=== PATIENT | female | born 1935 | race Caucasian/White ===

== ENCOUNTER 2017-02-05 04:40 | Inpatient (IN) ==
[2017-02-05] MEDS ORDERED: 0.9 % Sodium Chloride 1,000 ML IVC ONE (04:42)
[2017-02-05 05:19] LABS: Bilirubin,Urine Negative (Negative); Blood,Urine Negative (Negative); Clarity,Urine Cloudy (Clear); Color,Urine Yellow (Yellow); Glucose,Urine (UA) Normal (Normal); Ketones,Urine Negative (Negative); Leukocyte Esterase,Urine Negative (Negative); Nitrite,Urine Negative (Negative); Protein,Urine 30 mg/dL (Neg-Trace); Specific Gravity,Urine 1.019 (1.010-1.025); Urobilinogen,Urine Normal (Normal)
[2017-02-05 05:21] LABS: Hyaline Casts,Urine None Seen per lpf (None-Few); Squamous Epithelial Cell,Urine Many per lpf (None-Few); WBC,Urine 0-3 per hpf (0-3)
[2017-02-05 05:30] LABS: Amorphous Sediment,Urine Few (Few); Bacteria,Urine Many per hpf (None-Few)
[2017-02-05] MEDS ORDERED: *HR* Morphine 2 MG/ML SYRINGE IVP ONE (06:06)
[2017-02-05] MEDS ORDERED: Ondansetron 4 MG/2 ML VIAL IVP ONE (06:06)
--- NOTE | 2017-02-05 06:09 | Emergency Department Note ---
Disposition Clinical Impression: Delirium due to general medical condition Urinary tract infection Qualifiers: Urinary tract infection type: site unspecified Hematuria presence: without hematuria Qualified Code(s): N39.0 - Urinary tract infection, site not specified Disposition: Still a Patient Condition: Fair Referrals: Leonel Ulloa MD [Primary Care Provider] - Forms: ED Satisfaction Letter Time of Disposition: 07:17 General Adult HPI - General Chief complaint: ED Altered Mental Status Stated complaint: AMS Time Seen by Provider: 02/05/17 04:40 Source: EMS Mode of arrival: EMS Limitations: no limitations Nursing Notes Reviewed: Yes Vital Signs Reviewed: Yes - History of Present Illness HPI Narrative: Patient presents emergency room from home for evaluation of confusion and persistent abdominal pain and possible fever. She has a history of urinary tract infections. Family was not here on arrival by EMS. EMS denied any other issues in transport except for the possible fever. No signs of trauma or injury. Onset (ago): day(s) Location: abdomen Radiation: non-radiation Pain Severity: mild Pain Scale: 0 Quality: aching, sharp Consistency: constant Improves with: nothing Associated symptoms: Reports: confusion, fever/chills, loss of appetite. Denies : malaise, nausea/vomiting, shortness of breath Treatments Prior to Arrival: none - Related Data Home Medications Medication Instructions Recorded Confirmed Aspirin [Adult Low Dose Aspirin EC] 81 mg PO DAILY 08/23/15 08/23/15 Biotin 5 mg PO DAILY 08/23/15 08/23/15 BuPROPion SR (12 HR) [Wellbutrin 100 mg PO DAILY 08/23/15 08/23/15 SR] Cholecalciferol (Vitamin D3) 5,000 unit PO DAILY 08/23/15 08/23/15 [Vitamin D3] Glimepiride [Amaryl] 4 mg PO DAILY 08/23/15 08/23/15 Insulin Glargine,Hum.rec.anlog 30 unit SQ HS 08/23/15 08/23/15 [Lantus Solostar] Losartan Potassium [Cozaar] 100 mg PO DAILY 08/23/15 08/23/15 Metoprolol [Lopressor] 50 mg PO BID 08/23/15 08/23/15 Promethazine [Phenergan] 12.5 mg PO Q6HR 08/23/15 08/23/15 Zolpidem [Ambien] 5 mg PO HS 08/23/15 08/23/15 amLODIPine [Norvasc] 10 mg PO DAILY 08/23/15 08/23/15 HYDROcodone/Acet 7.5/325 mg [[place] 1 tab PO Q4H PRN 02/05/17 02/05/17 7.5-325 mg] Previous Rx's Medication Instructions Recorded Meclizine HCl [Bonine] 25 mg PO TID PRN #10 tab.chew 10/14/16 Allergies Allergy/AdvReac Type Severity Reaction Status Date / Time Penicillins Allergy See Verified 02/05/17 05:56 Comments pregabalin [From Lyrica] Allergy See Verified 02/05/17 05:56 Comments All systems ED: reviewed and negative except as stated. Review of Systems: As Per HPI Constitutional: Denies: fever, chills, weakness Cardiovascular: Denies: chest pain, palpitations, dyspnea on exertion, orthopnea , edema, syncope Respiratory: Denies: cough, dyspnea, wheezes, hemoptysis, sputum production Gastrointestinal: Reports: abdominal pain. Denies: nausea, vomiting, diarrhea, constipation Genitourinary: Denies: urgency, dysuria, frequency, hematuria Musculoskeletal: Denies: back pain, neck pain Integumentary: Denies: rash, abrasion Neurological: Denies: headache, weakness, numbness Endocrine: Denies: fatigue Past Medical History - Past Medical History Attestation: Yes The following information was validated with the patient. Source: patient Medical history: Reports: arthritis, diabetes, hypertension, peripheral artery disease, renal disease, other Surgical history: Reports: appendectomy, cataract, colectomy, hysterectomy, other Psychiatric history: Reports: depression [employer]GAGE [employer]OR history: Reports: no MORTGAGE COL[employer]OR history - Social History Smoking Status: Former smoker Smokeless Tobacco Status: No Alcohol use: Reports: none Drug use: Reports: none Physical Exam - General Limitations: no limitations General appearance: alert, in no apparent distress - Head Head exam: atraumatic, normocephalic, normal inspection - Eye Eye exam: Present: normal appearance, PERRL, EOMI. Absent: periorbital swelling , periorbital tenderness - ENT ENT exam: normal exam, normal oropharynx, mucous membranes moist - Neck Neck exam: Present: normal inspection, full ROM, trachea midline. Absent: tenderness, meningismus, lymphadenopathy - Chest Chest inspection: Present: normal inspection, symmetric chest wall rise. Absent : tenderness - Respiratory Respiratory exam: Present: normal lung sounds bilaterally. Absent: respiratory distress, wheezes, stridor, accessory muscle use - Cardiovascular Cardiovascular exam: Present: regular rate, normal rhythm, normal heart sounds - Abdominal Exam Abdominal exam: Present: soft, tenderness, normal bowel sounds. Absent: Non- Tender, distention, guarding, rebound, rigidity, diminished bowel sounds, Diaz 's sign, Rovsing's sign, tenderness at McBurney's Point - Extremities Exam Extremities exam: Present: normal inspection, full ROM, normal capillary refill. Absent: tenderness - Neurological Exam Neurological exam: Present: alert, oriented X3, CN II-XII intact. Absent: motor sensory deficit - Psychiatric Psychiatric exam: Present: normal affect - Skin Skin exam: Present: warm, dry, intact, normal color Course Course Narrative: Patient seen and examined the time of arrival by EMS. See history of present illness. 81-year-old female presents from home [facility] with complaint of abdominal pain over the last 24 hours. During transport patient had an Accu- Chek of 302 and a temperature of 100.1. Patient does have a history of urinary tract infections and does wear adult diapers. On presentation here to the emergency room patient is describing some discomfort and pain. Vital signs on presentation show stable heart rate temperature is reviewed and otherwise normal. Patient is mentating appropriately answering questions and does not appear to have any acute focal deficits at this time. She does appear to be in some moderate distress earlier on in the bed. When asked questions she says that her abdomen hurts. She is unable to isolate her point directly to a specific area where there are pain like symptoms. Lungs are clear heart is regular abdomen is soft diffuse tenderness noted on exam right lower quadrant worse than the left. No pulsatile lesions noted no signs of hernia and no other visible signs of trauma or injury at this point. Patient was on 4 extremities falls commands appropriately. Pulses are intact no signs of pitting edema. Patient denies chest pain shortness of breath headache vision changes nausea vomiting or diarrhea. There is concern for possible septic etiology causing the intermittent confusion. Urinalysis chest x-ray CT of the head CT the abdomen ordered this point. Labs including CBC chemistry liver function testing ammonia magnesium. First dose of IV antibiotics given for possible urinary tract infection considering her history. Patient is concerning for other etiology including intra-abdominal pathology consistent with ischemic bowel urinary tract infection pyelonephritis as well as pneumonia. Patient will have detailed evaluation including EKG and troponin collected at this time. Disposition pending workup and treatment course. Family is at the bedside and said that she has never acted like this in the past. Her. No recent trauma or injuries no recent medication changes at this time. Disposition will most likely be admission to the hospital pending evaluation completion - Reevaluation(s) Reevaluation #1: pt is concerning for intraabdominal pathology with elevated wbc, lactic acid. Kidney function is at baseline. CT of the head and chest x-ray otherwise unremarkable. Rocephin Levaquin and Flagyl been given this time. Secondary fluids are ordered for elevated lactic acid. Heart rate is been stable to the course of care. Pathology appears to be isolated to the abdomen at this time. Unknown specific etiology at this point. Patient will require admission for definitive evaluation and management. Her mentation is better at this point after pain medication has been provided. Patient was signed out to the daytime physician Dr. william. Detailed review the presentation symptoms medical intervention as well as history were discussed. No other acute medical intervention required at this time. We will continue to monitor. Disposition will be admission to hospital once evaluation is completed. Time: 07:16 Vital Signs Temperature 98.6 F 02/05/17 04:41 Pulse Rate 91 02/05/17 04:41 Respiratory Rate 20 02/05/17 04:41 Blood Pressure 106/67 02/05/17 04:41 O2 Sat by Pulse Oximetry 95 02/05/17 04:41 Temperature 98.6 F 02/05/17 04:41 Pulse Rate 77 02/05/17 06:51 Respiratory Rate 20 02/05/17 06:51 Blood Pressure 106/67 02/05/17 04:41 O2 Sat by Pulse Oximetry 97 02/05/17 06:51 Oxygen Delivery Oxygen Delivery Nasal Cannula Medical Decision Making - MDM Narrative Medical decision making narrative: Confusion, abdominal pain, elevated lactic acid, leukocytosis - Medical Records Medical records reviewed: Yes I reviewed the patient's medical records. - Lab Data Lab results reviewed: Yes I reviewed the patient's lab results. Result diagrams: 02/05/17 06:05 02/05/17 06:05 Lab Results 02/05/17 02/05/1702/05/17 Range/Units 05:05 06:05 06:05 WBC 27.9 H (4.3-11.1) K/mcL RBC 3.69 L (3.82-4.97) M/mcL Hgb 11.4 L (11.5-15.4) g/dL Hct 35.4 (35.3-44.9) % MCV 95.9 (83.0-100.0) fL MCH 30.9 (28.0-33.3) pg MCHC 32.2 (31.6-35.5) g/dL RDW 12.8 (11.5-14.5) % Plt Count 186 (140-400) K/mcL MPV 10.2 (9.4-12.4) fL Immature Gran % 1.6 (0-4) % Seg Neutrophils % 89.9 % Lymphocytes % 2.0 % Monocytes % 6.2 % Eosinophils % 0.0 % Basophils % 0.3 % Neutrophils # 25.1 H (1.6-8.9) K/mcL Lymphocytes # 0.6 (0.6-4.6) K/mcL Monocytes # 1.7 H (0.0-1.3) K/mcL Eosinophils # 0.0 (0.0-0.6) K/mcL Basophils # 0.1 (0.0-0.2) K/mcL Hyposegmented Neuts Present A (Not Present) Reactive Lymphocytes Present A (Not Present) Toxic Granulation Present A (Not Present) Toxic Vacuolation Present A (Not Present) Platelet Estimate Normal (Normal) PT 12.3 H (9.4-12.1) Seconds INR 1.1 APTT 27.4 (26.0-36.0) Seconds Sodium (136-145) mEq/L Potassium (3.5-4.5) mEq/L Chloride (98-109) mEq/L Carbon Dioxide (19-29) mEq/L BUN (7-20) mg/dL Creatinine (0.57-1.11) mg/dL Est GFR ( Amer) (> 60) Est GFR (Non-Af Amer) (> 60) BUN/Creatinine Ratio (6-26) Glucose (70-99) mg/dL Calculated Osmolality (280-300) Lactic Acid (0.5-2.2) mmol/L Calcium (8.6-10.8) mg/dL Phosphorus (2.3-4.7) mg/dL Magnesium (1.6-2.6) mg/dL Total Bilirubin (0.2-1.2) mg/dL Direct Bilirubin (0.0-0.5) mg/dL Indirect Bilirubin (0.0-1.2) mg/dL AST (5-34) Units/L ALT (0-55) Units/L Alkaline Phosphatase (38-126) Units/L Troponin I (0-0.03) ng/mL B-Natriuretic Peptide (0-100) pg/mL Serum Total Protein (6.0-8.3) g/dL Albumin (3.5-5.0) g/dL Globulin (2.4-3.5) g/dL Albumin/Globulin Ratio (1.1-2.2) Random Cortisol mcg/dl Urine Color Yellow (Yellow) Urine Clarity Cloudy A (Clear) Urine pH 5.0 (5.0-8.0) pH Units Ur Specific [place] 1.019 (1.010-1.025) Urine Protein 30 H (Neg-Trace) mg/dL Urine Glucose (UA) Normal (Normal) mg/dL Urine Ketones Negative (Negative) mg/dL Urine Blood Negative (Negative) Urine Nitrite Negative (Negative) Urine Bilirubin Negative (Negative) Urine Urobilinogen Normal (Normal) mg/dL Ur Leukocyte Esterase Negative (Negative) Urine Microscopic RBC 3-5 H (0-3) per hpf Urine Microscopic WBC 0-3 (0-3) per hpf Ur Squamous Epith Cells Many H (None-Few) per lpf Amorphous Sediment Few (Few) Urine Bacteria Many H (None-Few) per hpf Hyaline Casts None Seen (None-Few) per lpf Ur Culture Indicated? NO (NO) 02/05/17 02/05/17 02/05/17 Range/Units 06:05 06:05 06:05 WBC (4.3-11.1) K/mcL RBC (3.82-4.97) M/mcL Hgb (11.5-15.4) g/dL Hct (35.3-44.9) % MCV (83.0-100.0) fL MCH (28.0-33.3) pg MCHC (31.6-35.5) g/dL RDW (11.5-14.5) % Plt Count (140-400) K/mcL MPV (9.4-12.4) fL Immature Gran % (0-4) % Seg Neutrophils % % Lymphocytes % % Monocytes % % Eosinophils % % Basophils % % Neutrophils # (1.6-8.9) K/mcL Lymphocytes # (0.6-4.6) K/mcL Monocytes # (0.0-1.3) K/mcL Eosinophils # (0.0-0.6) K/mcL Basophils # (0.0-0.2) K/mcL Hyposegmented Neuts (Not Present) Reactive Lymphocytes (Not Present) Toxic Granulation (Not Present) Toxic Vacuolation (Not Present) Platelet Estimate (Normal) PT (9.4-12.1) Seconds INR APTT (26.0-36.0) Seconds Sodium 136 (136-145) mEq/L Potassium 4.1 (3.5-4.5) mEq/L Chloride 108 (98-109) mEq/L Carbon Dioxide 16 L (19-29) mEq/L BUN 35 H (7-20) mg/dL Creatinine 1.83 H (0.57-1.11) mg/dL Est GFR ( Amer) 32 L (> 60) Est GFR (Non-Af Amer) 26 L (> 60) BUN/Creatinine Ratio 19 (6-26) Glucose 227 H (70-99) mg/dL Calculated Osmolality 297 (280-300) Lactic Acid 2.9 H (0.5-2.2) mmol/L Calcium 9.2 (8.6-10.8) mg/dL Phosphorus 1.5 L (2.3-4.7) mg/dL Magnesium 1.3 L (1.6-2.6) mg/dL Total Bilirubin 1.0 (0.2-1.2) mg/dL Direct Bilirubin 0.5 (0.0-0.5) mg/dL Indirect Bilirubin 0.5 (0.0-1.2) mg/dL AST 33 (5-34) Units/L ALT 17 (0-55) Units/L Alkaline Phosphatase 57 (38-126) Units/L Troponin I 0.58 H* (0-0.03) ng/mL B-Natriuretic Peptide (0-100) pg/mL Serum Total Protein 7.0 (6.0-8.3) g/dL Albumin 3.4 L (3.5-5.0) g/dL Globulin 3.6 H (2.4-3.5) g/dL Albumin/Globulin Ratio 0.9 L (1.1-2.2) Random Cortisol mcg/dl Urine Color (Yellow) Urine Clarity (Clear) Urine pH (5.0-8.0) pH Units Ur Specific Melvin (1.010-1.025) Urine Protein (Neg-Trace) mg/dL Urine Glucose (UA) (Normal) mg/dL Urine Ketones (Negative) mg/dL Urine Blood (Negative) Urine Nitrite (Negative) Urine Bilirubin (Negative) Urine Urobilinogen (Normal) mg/dL Ur Leukocyte Esterase (Negative) Urine Microscopic RBC (0-3) per hpf Urine Microscopic WBC (0-3) per hpf Ur Squamous Epith Cells (None-Few) per lpf Amorphous Sediment (Few) Urine Bacteria (None-Few) per hpf Hyaline Casts (None-Few) per lpf Ur Culture Indicated? (NO) 02/05/17 Range/Units 06:05 WBC (4.3-11.1) K/mcL RBC (3.82-4.97) M/mcL Hgb (11.5-15.4) g/dL Hct (35.3-44.9) % MCV (83.0-100.0) fL MCH (28.0-33.3) pg MCHC (31.6-35.5) g/dL RDW (11.5-14.5) % Plt Count (140-400) K/mcL MPV (9.4-12.4) fL Immature Gran % (0-4) % Seg Neutrophils % % Lymphocytes % % Monocytes % % Eosinophils % % Basophils % % Neutrophils # (1.6-8.9) K/mcL Lymphocytes # (0.6-4.6) K/mcL Monocytes # (0.0-1.3) K/mcL Eosinophils # (0.0-0.6) K/mcL Basophils # (0.0-0.2) K/mcL Hyposegmented Neuts (Not Present) Reactive Lymphocytes (Not Present) Toxic Granulation (Not Present) Toxic Vacuolation (Not Present) Platelet Estimate (Normal) PT (9.4-12.1) Seconds INR APTT (26.0-36.0) Seconds Sodium (136-145) mEq/L Potassium (3.5-4.5) mEq/L Chloride (98-109) mEq/L Carbon Dioxide (19-29) mEq/L BUN (7-20) mg/dL Creatinine (0.57-1.11) mg/dL Est GFR ( Amer) (> 60) Est GFR (Non-Af Amer) (> 60) BUN/Creatinine Ratio (6-26) Glucose (70-99) mg/dL Calculated Osmolality (280-300) Lactic Acid (0.5-2.2) mmol/L Calcium (8.6-10.8) mg/dL Phosphorus (2.3-4.7) mg/dL Magnesium (1.6-2.6) mg/dL Total Bilirubin (0.2-1.2) mg/dL Direct Bilirubin (0.0-0.5) mg/dL Indirect Bilirubin (0.0-1.2) mg/dL AST (5-34) Units/L ALT (0-55) Units/L Alkaline Phosphatase (38-126) Units/L Troponin I (0-0.03) ng/mL B-Natriuretic Peptide 306 H (0-100) pg/mL Serum Total Protein (6.0-8.3) g/dL Albumin (3.5-5.0) g/dL Globulin (2.4-3.5) g/dL Albumin/Globulin Ratio (1.1-2.2) Random Cortisol mcg/dl Urine Color (Yellow) Urine Clarity (Clear) Urine pH (5.0-8.0) pH Units Ur Specific [place] (1.010-1.025) Urine Protein (Neg-Trace) mg/dL Urine Glucose (UA) (Normal) mg/dL Urine Ketones (Negative) mg/dL Urine Blood (Negative) Urine Nitrite (Negative) Urine Bilirubin (Negative) Urine Urobilinogen (Normal) mg/dL Ur Leukocyte Esterase (Negative) Urine Microscopic RBC (0-3) per hpf Urine Microscopic WBC (0-3) per hpf Ur Squamous Epith Cells (None-Few) per lpf Amorphous Sediment (Few) Urine Bacteria (None-Few) per hpf Hyaline Casts (None-Few) per lpf Ur Culture Indicated? (NO) - Radiology Data Radiology results reviewed: Yes I reviewed the patient's radiology results. Chest x-ray and CT of the head are negative - EKG Data EKG #1 EKG attestation: Yes I reviewed and interpreted this EKG. EKG shows normal: sinus rhythm, axis, QRS complexes, ST-T waves Rhythm: NSR [place]/QRS: left axis deviation, LBBB Heart block present: 1st Degree When compared to previous EKG there are: no significant changes Interpretation: no acute changes, unchanged when compared to prior tracing (date ) (10/14/16) Critical Care Time Critical Care Time: Yes Total Critical Care Time: 35 Attestation: Critical care performed: Time is exclusive of separately billable procedures. Time includes: direct patient care, patient reassessment, coordination of patient care, interpretation of data (laboratory data, radiology data, and respiratory data), review of patient's medical records, medical consultation and documentation of patient care. Procedures included in critical care time: Procedures excluded from critical care time:
[2017-02-05 06:18] LABS: Basophils # 0.1 K/mcL (0.0-0.2); Basophils % 0.3 %; Hematocrit 35.4 % (35.3-44.9); Hemoglobin 11.4 g/dL (11.5-15.4); Immature Granulocytes % 1.6 % (0-4); Lymphocytes # 0.6 K/mcL (0.6-4.6); Mean Corpuscular HGB Conc 32.2 g/dL (31.6-35.5); Mean Corpuscular Hemoglobin 30.9 pg (28.0-33.3); Mean Corpuscular Volume 95.9 fL (83.0-100.0); Mean Platelet Volume 10.2 fL (9.4-12.4); Monocytes # 1.7 K/mcL (0.0-1.3); Monocytes % 6.2 %; Neutrophils # 25.1 K/mcL (1.6-8.9); Platelet Count 186 K/mcL (140-400); Red Blood Count 3.69 M/mcL (3.82-4.97); Red Cell Distribution Width 12.8 % (11.5-14.5); Segmented Neutrophils % 89.9 %
[2017-02-05 06:27] LABS: INR 1.1; Prothrombin Time 12.3 Seconds (9.4-12.1)
[2017-02-05 06:29] LABS: Activated Partial Thrombo Time 27.4 Seconds (26.0-36.0)
[2017-02-05 06:34] LABS: Albumin 3.4 g/dL (3.5-5.0); Albumin/Globulin Ratio 0.9 (1.1-2.2); Bilirubin,Direct 0.5 mg/dL (0.0-0.5); Bilirubin,Indirect 0.5 mg/dL (0.0-1.2); Calcium 9.2 mg/dL (8.6-10.8); Globulin 3.6 g/dL (2.4-3.5); Magnesium 1.3 mg/dL (1.6-2.6); Phosphorous 1.5 mg/dL (2.3-4.7); Platelet Estimate Normal (Normal); Potassium 4.1 mEq/L (3.5-4.5); Reactive Lymphocytes Present (Not Present); Toxic Granulation Present (Not Present); Toxic Vacuolation Present (Not Present)
[2017-02-05] MEDS ORDERED: MetroNIDAZOLE 500 MG/100 ML 500 MG/100 ML BAG IVPB ONE (06:44)
[2017-02-05] MEDS ORDERED: Levofloxacin 750 MG/150 ML 750 MG/150 ML BAG IVPB ONE (06:44)
[2017-02-05] MEDS: Vancomycin 1,250 MG in D5% in Water 250 ML IVPB ONE ×2 (07:20→07:53)
--- NOTE | 2017-02-05 07:33 | Emergency Department Note ---
Disposition Clinical Impression: Delirium due to general medical condition Urinary tract infection Qualifiers: Urinary tract infection type: site unspecified Hematuria presence: without hematuria Qualified Code(s): N39.0 - Urinary tract infection, site not specified Disposition: Admitted As Inpatient Condition: Fair Referrals: Leonel Ulloa MD [Primary Care Provider] - General Adult HPI - General Chief complaint: ED Altered Mental Status Stated complaint: AMS Time Seen by Provider: 02/05/17 04:40 Source: EMS Mode of arrival: EMS Limitations: no limitations Nursing Notes Reviewed: Yes Vital Signs Reviewed: Yes - History of Present Illness Location: abdomen Pain Scale: 0 Quality: aching, sharp Improves with: nothing Associated symptoms: Reports: confusion, fever/chills, loss of appetite. Denies : malaise, nausea/vomiting, shortness of breath Treatments Prior to Arrival: none - Related Data Home Medications Medication Instructions Recorded Confirmed Aspirin [Adult Low Dose Aspirin EC] 81 mg PO DAILY 08/23/15 02/05/17 Biotin 5 mg PO DAILY 08/23/15 02/05/17 BuPROPion SR (12 HR) [Wellbutrin 100 mg PO DAILY 08/23/15 02/05/17 SR] Cholecalciferol (Vitamin D3) 5,000 unit PO DAILY 08/23/15 02/05/17 [Vitamin D3] Glimepiride [Amaryl] 4 mg PO DAILY 08/23/15 02/05/17 Insulin Glargine,Hum.rec.anlog 26 unit SQ HS 08/23/15 02/05/17 [Lantus Solostar] Losartan Potassium [Cozaar] 100 mg PO DAILY 08/23/15 02/05/17 Metoprolol [Lopressor] 50 mg PO BID 08/23/15 02/05/17 Promethazine [Phenergan] 12.5 mg PO Q6HR 08/23/15 02/05/17 Zolpidem [Ambien] 5 mg PO HS 08/23/15 02/05/17 amLODIPine [Norvasc] 10 mg PO DAILY 08/23/15 02/05/17 HYDROcodone/Acet 7.5/325 mg [[place] 1 tab PO Q4H PRN 02/05/17 02/05/17 7.5-325 mg] Previous Rx's Medication Instructions Recorded Meclizine HCl [Bonine] 25 mg PO TID PRN #10 tab.chew 10/14/16 Allergies Allergy/AdvReac Type Severity Reaction Status Date / Time Penicillins Allergy See Verified 02/05/17 05:56 Comments pregabalin [From Lyrica] Allergy See Verified 02/05/17 05:56 Comments Constitutional: Denies: fever, chills, weakness Cardiovascular: Denies: chest pain, palpitations, dyspnea on exertion, orthopnea , edema, syncope Respiratory: Denies: cough, dyspnea, wheezes, hemoptysis, sputum production Gastrointestinal: Reports: abdominal pain. Denies: nausea, vomiting, diarrhea, constipation Genitourinary: Denies: urgency, dysuria, frequency, hematuria Musculoskeletal: Denies: back pain, neck pain Integumentary: Denies: rash, abrasion Neurological: Denies: headache, weakness, numbness Endocrine: Denies: fatigue Past Medical History - Past Medical History Attestation: Yes The following information was validated with the patient. Medical history: Reports: arthritis, diabetes, hypertension, peripheral artery disease, renal disease, other Surgical history: Reports: appendectomy, cataract, colectomy, hysterectomy, other Psychiatric history: Reports: depression BRICK TOSSER history: Reports: no BRICK TOSSER history - Social History Smoking Status: Former smoker Smokeless Tobacco Status: No Alcohol use: Reports: none Drug use: Reports: none Physical Exam - General Limitations: no limitations General appearance: alert, in no apparent distress - Head Head exam: atraumatic, normocephalic, normal inspection - Eye Eye exam: Present: normal appearance, PERRL, EOMI. Absent: scleral icterus - ENT ENT exam: normal exam, normal oropharynx, mucous membranes moist - Neck Neck exam: Present: normal inspection, full ROM, trachea midline - Chest Chest inspection: Present: normal inspection, symmetric chest wall rise. Absent : tenderness, rash - Respiratory Respiratory exam: Present: normal lung sounds bilaterally. Absent: respiratory distress, accessory muscle use - Cardiovascular Cardiovascular exam: Present: regular rate, normal rhythm, normal heart sounds Course Course Narrative: Patient signed out by water pumper. Dr. Montez. Please see his note for further. Patient is presenting with abdominal pain. Initial workup has been completed. She has been started on broad-spectrum antibiotics. She did present with a mild fever initially and abdominal pain. Does have a chronic history of urinary tract infections. Also has a history of bowel obstruction. On my presentation to the room the patient denies any abdominal pain however on exam she does have our quadrant abdominal pain bilaterally. More so on the right than the left. She has no other complaints at this time. She appears to be in no distress swelling there. Her abdominal CT shows epiploic appendage- itis versus diverticulosis. She has a elevated troponin and increased white blood cell count. Her urinalysis is not overly concerning for urinary tract infection. She has no leuk esterase or nitrites. She does have many bacteria however. The patient on broad-spectrum antibiotic since received a small fluid bolus. She does have some edema to her lower extremities bilaterally. She also has some mild erythema to her left lower extremity. It is not any warmer to the touch than her right lower extremity. We will admit patient to the hospital. - Consultations Consultation #1: Dr Mcmahon accepted Pt in stable condition. I have ensured that the Pt is going to get Vanc and flagyl. Time: 07:40 Vital Signs Temperature 98.6 F 02/05/17 04:41 Pulse Rate 91 02/05/17 04:41 Respiratory Rate 20 02/05/17 04:41 Blood Pressure 106/67 02/05/17 04:41 O2 Sat by Pulse Oximetry 95 02/05/17 04:41 Temperature 99.7 F H 02/05/17 08:54 Pulse Rate 83 02/05/17 08:54 Respiratory Rate 17 02/05/17 08:54 Blood Pressure 133/56 02/05/17 08:54 O2 Sat by Pulse Oximetry 95 02/05/17 08:54 Oxygen Delivery Oxygen Delivery Room Air Medical Decision Making - Lab Data Result diagrams: 02/05/17 06:05 02/05/17 06:05 Lab Results 02/05/17 02/05/17 02/05/17 Range/Units 05:05 06:05 06:05 WBC 27.9 H (4.3-11.1) K/mcL RBC 3.69 L (3.82-4.97) M/mcL Hgb 11.4 L (11.5-15.4) g/dL Hct 35.4 (35.3-44.9) % MCV 95.9 (83.0-100.0) fL MCH 30.9 (28.0-33.3) pg MCHC 32.2 (31.6-35.5) g/dL RDW 12.8 (11.5-14.5) % Plt Count 186 (140-400) K/mcL MPV 10.2 (9.4-12.4) fL Immature Gran % 1.6 (0-4) % Seg Neutrophils % 89.9 % Lymphocytes % 2.0 % Monocytes % 6.2 % Eosinophils % 0.0 % Basophils % 0.3 % Neutrophils # 25.1 H (1.6-8.9) K/mcL Lymphocytes # 0.6 (0.6-4.6) K/mcL Monocytes # 1.7 H (0.0-1.3) K/mcL Eosinophils # 0.0 (0.0-0.6) K/mcL Basophils # 0.1 (0.0-0.2) K/mcL Hyposegmented Neuts Present A (Not Present) Reactive Lymphocytes Present A (Not Present) Toxic Granulation Present A (Not Present) Toxic Vacuolation Present A (Not Present) Platelet Estimate Normal (Normal) PT 12.3 H (9.4-12.1) Seconds INR 1.1 APTT 27.4 (26.0-36.0) Seconds Sodium (136-145) mEq/L Potassium (3.5-4.5) mEq/L Chloride (98-109) mEq/L Carbon Dioxide (19-29) mEq/L BUN (7-20) mg/dL Creatinine (0.57-1.11) mg/dL Est GFR ( Amer) (> 60) Est GFR (Non-Af Amer) (> 60) BUN/Creatinine Ratio (6-26) Glucose (70-99) mg/dL Calculated Osmolality (280-300) Lactic Acid (0.5-2.2) mmol/L Calcium (8.6-10.8) mg/dL Phosphorus (2.3-4.7) mg/dL Magnesium (1.6-2.6) mg/dL Total Bilirubin (0.2-1.2) mg/dL Direct Bilirubin (0.0-0.5) mg/dL Indirect Bilirubin (0.0-1.2) mg/dL AST (5-34) Units/L ALT (0-55) Units/L Alkaline Phosphatase (38-126) Units/L Ammonia (18-72) mcmol/L Troponin I (0-0.03) ng/mL B-Natriuretic Peptide (0-100) pg/mL Serum Total Protein (6.0-8.3) g/dL Albumin (3.5-5.0) g/dL Globulin (2.4-3.5) g/dL Albumin/Globulin Ratio (1.1-2.2) Random Cortisol mcg/dl Urine Color Yellow (Yellow) Urine Clarity Cloudy A (Clear) Urine pH 5.0 (5.0-8.0) pH Units Ur Specific Reserve 1.019 (1.010-1.025) Urine Protein 30 H (Neg-Trace) mg/dL Urine Glucose (UA) Normal (Normal) mg/dL Urine Ketones Negative (Negative) mg/dL Urine Blood Negative (Negative) Urine Nitrite Negative (Negative) Urine Bilirubin Negative (Negative) Urine Urobilinogen Normal (Normal) mg/dL Ur Leukocyte Esterase Negative (Negative) Urine Microscopic RBC 3-5 H (0-3) per hpf Urine Microscopic WBC 0-3 (0-3) per hpf Ur Squamous Epith Cells Many H (None-Few) per lpf Amorphous Sediment Few (Few) Urine Bacteria Many H (None-Few) per hpf Hyaline Casts None Seen (None-Few) per lpf Ur Culture Indicated? NO (NO) 02/05/17 02/05/17 02/05/17 Range/Units 06:05 06:05 06:05 WBC (4.3-11.1) K/mcL RBC (3.82-4.97) M/mcL Hgb (11.5-15.4) g/dL Hct (35.3-44.9) % MCV (83.0-100.0) fL MCH (28.0-33.3) pg MCHC (31.6-35.5) g/dL RDW (11.5-14.5) % Plt Count (140-400) K/mcL MPV (9.4-12.4) fL Immature Gran % (0-4) % Seg Neutrophils % % Lymphocytes % % Monocytes % % Eosinophils % % Basophils % % Neutrophils # (1.6-8.9) K/mcL Lymphocytes # (0.6-4.6) K/mcL Monocytes # (0.0-1.3) K/mcL Eosinophils # (0.0-0.6) K/mcL Basophils # (0.0-0.2) K/mcL Hyposegmented Neuts (Not Present) Reactive Lymphocytes (Not Present) Toxic Granulation (Not Present) Toxic Vacuolation (Not Present) Platelet Estimate (Normal) PT (9.4-12.1) Seconds INR APTT (26.0-36.0) Seconds Sodium 136 (136-145) mEq/L Potassium 4.1 (3.5-4.5) mEq/L Chloride 108 (98-109) mEq/L Carbon Dioxide 16 L (19-29) mEq/L BUN 35 H (7-20) mg/dL Creatinine 1.83 H (0.57-1.11) mg/dL Est GFR ( Amer) 32 L (> 60) Est GFR (Non-Af Amer) 26 L (> 60) BUN/Creatinine Ratio 19 (6-26) Glucose 227 H (70-99) mg/dL Calculated Osmolality 297 (280-300) Lactic Acid 2.9 H (0.5-2.2) mmol/L Calcium 9.2 (8.6-10.8) mg/dL Phosphorus 1.5 L (2.3-4.7) mg/dL Magnesium 1.3 L (1.6-2.6) mg/dL Total Bilirubin 1.0 (0.2-1.2) mg/dL Direct Bilirubin 0.5 (0.0-0.5) mg/dL Indirect Bilirubin 0.5 (0.0-1.2) mg/dL AST 33 (5-34) Units/L ALT 17 (0-55) Units/L Alkaline Phosphatase 57 (38-126) Units/L Ammonia (18-72) mcmol/L Troponin I 0.58 H* (0-0.03) ng/mL B-Natriuretic Peptide (0-100) pg/mL Serum Total Protein 7.0 (6.0-8.3) g/dL Albumin 3.4 L (3.5-5.0) g/dL Globulin 3.6 H (2.4-3.5) g/dL Albumin/Globulin Ratio 0.9 L (1.1-2.2) Random Cortisol 58.4 mcg/dl Urine Color (Yellow) Urine Clarity (Clear) Urine pH (5.0-8.0) pH Units Ur Specific Reserve (1.010-1.025) Urine Protein (Neg-Trace) mg/dL Urine Glucose (UA) (Normal) mg/dL Urine Ketones (Negative) mg/dL Urine Blood (Negative) Urine Nitrite (Negative) Urine Bilirubin (Negative) Urine Urobilinogen (Normal) mg/dL Ur Leukocyte Esterase (Negative) Urine Microscopic RBC (0-3) per hpf Urine Microscopic WBC (0-3) per hpf Ur Squamous Epith Cells (None-Few) per lpf Amorphous Sediment (Few) Urine Bacteria (None-Few) per hpf Hyaline Casts (None-Few) per lpf Ur Culture Indicated? (NO) 02/05/17 02/05/17 02/05/17 Range/Units 06:05 07:55 07:55 WBC (4.3-11.1) K/mcL RBC (3.82-4.97) M/mcL Hgb (11.5-15.4) g/dL Hct (35.3-44.9) % MCV (83.0-100.0) fL MCH (28.0-33.3) pg MCHC (31.6-35.5) g/dL RDW (11.5-14.5) % Plt Count (140-400) K/mcL MPV (9.4-12.4) fL Immature Gran % (0-4) % Seg Neutrophils % % Lymphocytes % % Monocytes % % Eosinophils % % Basophils % % Neutrophils # (1.6-8.9) K/mcL Lymphocytes # (0.6-4.6) K/mcL Monocytes # (0.0-1.3) K/mcL Eosinophils # (0.0-0.6) K/mcL Basophils # (0.0-0.2) K/mcL Hyposegmented Neuts (Not Present) Reactive Lymphocytes (Not Present) Toxic Granulation (Not Present) Toxic Vacuolation (Not Present) Platelet Estimate (Normal) PT (9.4-12.1) Seconds INR APTT (26.0-36.0) Seconds Sodium (136-145) mEq/L Potassium (3.5-4.5) mEq/L Chloride (98-109) mEq/L Carbon Dioxide (19-29) mEq/L BUN (7-20) mg/dL Creatinine (0.57-1.11) mg/dL Est GFR ( Amer) (> 60) Est GFR (Non-Af Amer) (> 60) BUN/Creatinine Ratio (6-26) Glucose (70-99) mg/dL Calculated Osmolality (280-300) Lactic Acid 2.9 H (0.5-2.2) mmol/L Calcium (8.6-10.8) mg/dL Phosphorus (2.3-4.7) mg/dL Magnesium (1.6-2.6) mg/dL Total Bilirubin (0.2-1.2) mg/dL Direct Bilirubin (0.0-0.5) mg/dL Indirect Bilirubin (0.0-1.2) mg/dL AST (5-34) Units/L ALT (0-55) Units/L Alkaline Phosphatase (38-126) Units/L Ammonia 23 (18-72) mcmol/L Troponin I (0-0.03) ng/mL B-Natriuretic Peptide 306 H (0-100) pg/mL Serum Total Protein (6.0-8.3) g/dL Albumin (3.5-5.0) g/dL Globulin (2.4-3.5) g/dL Albumin/Globulin Ratio (1.1-2.2) Random Cortisol mcg/dl Urine Color (Yellow) Urine Clarity (Clear) Urine pH (5.0-8.0) pH Units Ur Specific Reserve (1.010-1.025) Urine Protein (Neg-Trace) mg/dL Urine Glucose (UA) (Normal) mg/dL Urine Ketones (Negative) mg/dL Urine Blood (Negative) Urine Nitrite (Negative) Urine Bilirubin (Negative) Urine Urobilinogen (Normal) mg/dL Ur Leukocyte Esterase (Negative) Urine Microscopic RBC (0-3) per hpf Urine Microscopic WBC (0-3) per hpf Ur Squamous Epith Cells (None-Few) per lpf Amorphous Sediment (Few) Urine Bacteria (None-Few) per hpf Hyaline Casts (None-Few) per lpf Ur Culture Indicated? (NO)
[2017-02-05] MEDS ORDERED: Magnesium Sulfate 2 GM in D5% in Water 100 ML IVPB ONE (09:33)
[2017-02-05] MEDS ORDERED: Naloxone 0.4 MG/ML INJ IVP PRN (09:43)
[2017-02-05] MEDS ORDERED: Ondansetron 4 MG/2 ML VIAL IVP PRN (09:43)
[2017-02-05] MEDS ORDERED: *HR* Morphine 2 MG/ML SYRINGE IVP PRN (09:43)
[2017-02-05] MEDS ORDERED: 0.9 % Sodium Chloride 1,000 ML IVC SCH (09:45)
[2017-02-05] MEDS ORDERED: Sodium Bicarbonate 150 MEQ in 0.45 % Sodium Chloride 1,000 ML IVC SCH (09:45)
[2017-02-05] MEDS ORDERED: D5% in Water 1,000 ML IVC PRN (09:47)
[2017-02-05] MEDS ORDERED: *HR* Dextrose 50 % in Water (Syg) 50 ML SYRINGE IVP PRN (09:47)
[2017-02-05] MEDS ORDERED: Dextrose Gel 15 GM PO PRN ×2 (09:47)
[2017-02-05] MEDS ORDERED: *HR* HYDROcodone/Acet 7.5/325 mg TABLET PO PRN (09:50)
[2017-02-05] MEDS ORDERED: Acetaminophen 325 MG TABLET PO PRN (09:59)
--- NOTE | 2017-02-05 10:17 | Internal Med History&Physical ---
<Afsaneh Elizondo - Last Filed: 02/05/17 09:54> Date of Encounter: 02/05/17 Time of Encounter: 09:54 Assessment and Plan (1) Severe sepsis Current visit: Yes Status: Acute Patient presents with severe sepsis of unknown etiology WBC: 27.9, troponin elevated to 0.58, lactate elevated at 2.9x2 Bicarb 16; 283 meq deficiency CXR negative EKG unchanged from old: Sinus rhythm with 1st degree AV block, left axis deviation, left bbb CT abdomen revealed Inflammatory stranding adjacent to the proximal sigmoid colon in the left lower quadrant suggesting fatty mass, findings may represent epiploic appendagitis or inflammation of a prominent lymph node with fatty hilum of unclear etiology, acute diverticulitis is considered less likely as no inflamed diverticula are identified; severe diverticulosis, cholelithiasis. IV vancomycin, rocephin, flagyl and levaquin were administered in the ER. The patient was admitted to the Hospitalist service for further evaluation of a source of her severe sepsis. Abd non-distend, soft, very hot, no erythema or eccymosis, bs hypoactive, tender in LLQ, RLQ, suprapubic. No anasarca on exam, no fluid wave appreciated. Afebrile, regular rate, normotensive BC drawn in ED Abx in ED: rocephin, flagyl, levaquin, vanc Plan: -Will give 3 amps bicarb in 0.45% NS bolus -IVF after bolus 0.9%NS at 75/hr -IV cipro and flagyl -Trend lactate Q4hr until <2 -Trend trops Q6hr, elevation most likely secondary to severe sepsis -Clear liquid diet -telemetry -PT/OT -pain control -zofran, phenergan for nausea -GI prohpylaxis: omeprazole -DVT prophylaxis: Hep SQ (2) Increased anion gap metabolic acidosis Current visit: Yes Status: Acute A Patient with multiple episodes of diarrhea, decreased bicarb, mag and phos likely secondary to diarrhea Plan: -3amps bicarb in 0.45%NS -IVF at 75/hr after that -Replete mag and phos -Monitor electrolytes -test for cdiff (3) Diarrhea Current visit: Yes Status: Acute Patient had 2 episodes of diarrhea while in the ED, denies diarrhea yesterday stating she had formed stool. Denies blood in stool, melena, recent abx use. Plan: -cidff pcr -IVF -Continue to monitor electrolytes Qualifiers: Diarrhea type: unspecified type Qualified Code(s): R19.7 - Diarrhea, unspecified (4) Hypomagnesemia Current visit: Yes Status: Acute Mag 1.3 Plan: -Replace with 1gm mag Q4hrx3 doses -Recheck in AM (5) Hypophosphatemia Current visit: Yes Status: Acute Phos 1.5 Plan: -Replace with neutrophos -Recheck in AM (6) CKD (chronic kidney disease) stage 4, GFR 15-29 ml/min Current visit: Yes Status: Acute Scr, GFR at baseline Plan: -Will continue to monitor -Will hold losartan today and hold if SCr worsens to avoid nephrotic injury -Will renally dose and avoid nephrotoxins as able. (7) Diabetes mellitus Current visit: Yes Status: Acute Plan: -levemir 26 units QHS -Medium dose SSI -Accuchecks ACHS Qualifiers: Diabetes mellitus type: type 2 Diabetes mellitus complication status: with neurologic complications Diabetes mellitus complication detail: with polyneuropathy Diabetes mellitus long term care phlebotomist insulin use: unspecified long term care phlebotomist insulin use status Qualified Code(s): E11.42 - Type 2 diabetes mellitus with diabetic polyneuropathy (8) HTN (hypertension) Current visit: Yes Status: Acute BP stable Plan: -Continue to monitor -Will restart home BP meds, hold if SBP<100 -Will hold losartan today and restart tomorrow Qualifiers: Hypertension type: essential hypertension Qualified Code(s): I10 - Essential (primary) hypertension (9) PAD (peripheral artery disease) Current visit: Yes Status: Acute HX of PAD Patient has B/L LE edema, left calf circumference > right, mild erythema left anterior delatorre, increased warmth on left compared to right Plan: -B/l venous doppler to r/o DVT (10) DVT prophylaxis Current visit: Yes Status: Acute Heparin SQ Internal Medicine - H&P: HPI Chief complaint: abdominal pain Admitted From: Emergency Dept Plans for Post Hospital Care: Home History of present illness: Ms. Syed is a 81 year old female with a PMH of IDDM with neuropathy, PAD, CKD stage IV, and HTN who presented to the [facility] ED this morning with abdominal pain. She states that she began experiencing an aching, constant, non-radiating pain in her lower abdomen around 0100. She noted associated SOB, nausea, low back pain, bilateral LE edema and being "wobbly" on her feet. She states that while enroute, EMS took her temperature and it was 100.1. She states that while in the ER, she had 2 episodes of diarrhea that was not dark or bloody. Yesterday she had normal "formed" stool. She denies any recent illness, antibiotic use, sick contacts, travel or new/unusual food in her diet. She denies fever, chills, JUAREZ, dizziness, visual changes, ear pain, sore throat, rhinorrea, neck pain, palpitations, cp, cough, wheezing, vomiting, dysuria, incontinence, buring with urination, constipation, rashes, bruising, sores, numbness/tingling of her extremities. Her family notes that she has a history of recurrent UITs and bowel obstructions, once requiring surgical intervention. She was evaluated in the ER and found to have a leukocytosis of 27.9 with neutrophils 25.1, elevated lactate at 2.9x2 draws and elevated troponin at 0.58. BC were drawn and the UA does not demonstrate a current UTI. CXR was negative for any accute process. CT abdomen revealed Inflammatory stranding adjacent to the proximal sigmoid colon in the left lower quadrant suggesting fatty mass, findings may represent epiploic appendagitis or inflammation of a prominent lymph node with fatty hilum of unclear etiology, acute diverticulitis is considered less likely as no inflamed diverticula are identified; severe diverticulosis, cholelithiasis. IV vancomycin, rocephin, flagyl and levaquin were administered in the ER. The patient was admitted to the Hospitalist service for further evaluation of a source of her severe sepsis. Past Med Surg Social Fam HX - Past Medical History Source: patient, obtained from family Medical history: arthritis, diabetes, hypertension, peripheral artery disease, renal disease, other Psychiatric history: depression - Past Surgical History Surgical History: appendectomy, cataract, colectomy, hysterectomy, other - Social History Smoking Status: Former smoker Smokeless Tobacco Status: No Alcohol use: none Drug use: none Occupational status: retired Current living situation: Home, With Family Activity Level: Uses cane/walker (cane) Recent Out of Country Travel Within the Last 8 Weeks: No Exposure or Possible Exposure to Illness During Travel: No - Family History Father Living Status: Hx Family Cardiac Disorders: Yes Internal Medicine - H&P: Meds Aspirin [Adult Low Dose Aspirin EC] 81 mg PO DAILY 08/23/15 [History] Biotin 5 mg PO DAILY 08/23/15 [History] BuPROPion SR (12 HR) [Wellbutrin SR] 100 mg PO DAILY 08/23/15 [History] Cholecalciferol (Vitamin D3) [Vitamin D3] 5,000 unit PO DAILY 08/23/15 [History] Glimepiride [Amaryl] 4 mg PO DAILY 08/23/15 [History] Insulin Glargine,Hum.rec.anlog [Lantus Solostar] 26 unit SQ HS 08/23/15 [History ] Losartan Potassium [Cozaar] 100 mg PO DAILY 08/23/15 [History] Metoprolol [Lopressor] 50 mg PO BID 08/23/15 [History] Promethazine [Phenergan] 12.5 mg PO Q6HR 08/23/15 [History] Zolpidem [Ambien] 5 mg PO HS 08/23/15 [History] amLODIPine [Norvasc] 10 mg PO DAILY 08/23/15 [History] Meclizine HCl [Bonine] 25 mg PO TID PRN #10 tab.chew 10/14/16 [Rx] HYDROcodone/Acet 7.5/325 mg [[place] 7.5-325 mg] 1 tab PO Q4H PRN 02/05/17 [ History] 3 Allergy/AdvReac Type Severity Reaction Status Date / Time Penicillins Allergy See Verified 02/05/17 05:56 Comments pregabalin [From Lyrica] Allergy See Verified 02/05/17 05:56 Comments All Systems PM: A 10-system review of systems was performed and is negative for pertinent findings except as documented above in the HPI. - Constitutional Vitals: Temp Pulse Resp BP Pulse Ox 99.7 F H 83 17 133/56 95 02/05/17 08:54 02/05/17 08:54 02/05/17 08:54 02/05/17 08:54 02/05/17 08:54 General appearance: Present: cooperative, A&O X 3, pleasant, no acute distress, obese, answers questions appropriately - Head Head exam: Present: atraumatic, normocephalic - Eye Eye exam: Present: EOMI, normal appearance, PERRL, conjuntiva pink, sclera anicteric Pupils: Present: PERRL - Neck Neck exam general surgery: Present: normal inspection, supple, trachea midline. Absent: lymphadenopathy, tenderness, nuchal rigidity, thyromegaly - Respiratory Respiratory exam: Present: CTAB. Absent: accessory muscle use, rales, rhonchi, wheezes - Cardiovascular Cardiovascular exam: Present: RRR, +S1, +S2. Absent: diastolic murmur, gallop, rubs, systolic murmur - GI/Abdominal GI/Abdominal exam: Present: hypoactive bowel sounds, soft, tenderness (RLQ, LLQ , suprapubic), no peritoneal signs. Absent: distended Additional comments: Skin feels hot no fluid wave - Extremities Exam Extremities exam: Present: normal capillary refill, pedal edema, tenderness, warm, radial pulses palpable and symmetrical. Absent: cyanotic Additional comments: bilateral LE pitting edema left calf circumference greater than the right mild erythema anteriorly on the left delatorre healing scabs on b/l shins no open sores noted, no pressure sores - Back Exam Back exam: Present: normal inspection, vertebral tenderness (L1/L2). Absent: CVA tenderness (L), CVA tenderness (R), rash noted - Neurological Exam Neurological exam: Present: alert, CN II-XII intact, oriented X3, no focal deficits, strengths equal and symetr throughout. Absent: motor sensory deficit , pronater drift, facial droop, speech deficit - Expanded Neurological Exam Patient oriented to: Present: person, place, time Speech: Present: fluid speech Cranial Nerves: EOM's intact PM: Normal, nystagmus PM: Normal, tongue deviation PM: Normal Cerebellar function: finger to nose: Normal Sensory exam: lower extremity light touch: Normal, upper extremity light touch: Normal Neuro motor strength exam: LUE: 5, RUE: 5, LLE: 4, RLE: 4 Coma Scale Eye Opening: Spontaneous Coma Scale Motor Response: Obeys Commands Coma Scale Verbal Response: Oriented Coma Scale Total: 15 - Psychiatric Psychiatric exam: Present: normal affect, normal mood - Skin Skin exam: Present: dry, intact, normal color, warm. Absent: diaphoretic, erythema, rash Additional comments: No ulcers noted on back, buttocks or b/l LE/feet no rashes noted mild area of erythema on anterior left delatorre healing scabs b/l shins Internal Med - H&P Results - Labs CBC & Chem 7: 02/05/17 06:05 02/05/17 06:05 <Gloria Mcmahon - Last Filed: 02/05/17 15:46> Date of Encounter: 02/05/17 Internal Medicine - H&P: HPI History of present illness: Ms. Syed is a 81 year old female All Systems PM: A 10-system review of systems was performed and is negative for pertinent findings except as documented above in the HPI. - Constitutional Vitals: Temp Pulse Resp BP Pulse Ox 97.4 F L 83 35 133/56 91 02/05/17 10:50 02/05/17 08:54 02/05/17 12:35 02/05/17 08:54 02/05/17 12:35 Internal Med - H&P Results - Labs CBC & Chem 7: 02/05/17 13:35 02/05/17 06:05 Labs: Short CBC 02/05/17 Range/Units 13:35 WBC 33.6 H* (4.3-11.1) K/mcL Hgb 11.3 L (11.5-15.4) g/dL Hct 35.1 L (35.3-44.9) % Plt Count 208 (140-400) K/mcL Cardiac Enzymes 02/05/17 Range/Units 12:07 Troponin I 3.82 H* (0-0.03) ng/mL - ABG Interpretation ABG results: 02/05/17 12:56 ABG pH 7.24 L ABG pCO2 42 ABG pO2 69 L ABG HCO3 18.0 L ABG Total CO2 19.3 L ABG O2 Saturation 90 L ABG Base Excess -9.0 L - Attending Attestation I examined this patient and my medical decision-making was reviewed with the Resident Physician. I agree with the documented findings, disposition and treatment plan as described except to the extent set forth below. Patient was independently seen and examined with family present at bedside. Patient has extensive PMH including HTN, DM, CKD who is admitted for sepsis of unknown etiology (GI source likely), AGMA secondary to diarrhea (C-diff negative ), and electrolyte abnormality. Pt has history of severe anxiety and was noted to be in severe respiratory distress driven by anxiety. She received one time dose of Ativan 1mg IV and was placed ton bipap support. Upon arrival to the ER, she was also noted to have elevated TNI without any EKG changes. Repeat TNI was noted to be markedly elevated due to which she was started on heparin gtt as per NSTEMI protocol. Cardiology consultation was requested for further evaluation. Patient has received empiric IV abx in the ER. Given her diarrhea and CT abd finding, GI etiology is likely source of her sepsis. Will continue IV Metronidazole and IV Ciprofloxacin at this time. will continue bicarb infusion, electrolyte supplementation, O2 supplementation/bipap support. ASA, Lipitor when able to take PO meds. Pt's vitals are within acceptable range. Will continue to closely monitor.
[2017-02-05] MEDS: Aspirin Enteric Coated 81 MG Tablet PO SCH (10:48)
[2017-02-05] MEDS: amLODIPine 5 MG TABLET PO SCH (10:49)
[2017-02-05] MEDS: Magnesium Sulfate 1 GM in D5% in Water 100 ML IVPB SCH ×3 (11:54→22:41)
[2017-02-05] MEDS: Insulin LISPRO 300 UNITS/3 ML VIAL SQ SCH ×4 (12:00→22:40)
[2017-02-05] MEDS ORDERED: Ipratropium/Albuterol Neb 3 ML ONE (12:30)
[2017-02-05] MEDS ORDERED: *HR* LORazepam 2 MG/ML VIAL IVP ONE ×2 (12:33→12:41)
[2017-02-05] MEDS ORDERED: *HR* LORazepam 2 MG/ML VIAL ONE (12:34)
[2017-02-05] MEDS ORDERED: Ipratropium/Albuterol Neb 3 ML IH ONE (12:42)
[2017-02-05] MEDS ORDERED: *HR* Heparin 5,000 UNIT/ML VIAL IVP PRN (12:45)
[2017-02-05] MEDS ORDERED: *HR* Heparin 5,000 UNIT/ML VIAL IVP ONE (12:45)
[2017-02-05 13:01] LABS: ABG Oxygen Saturation 90 % (95-98); ABG PCO2 42 mmHg (35-45); ABG PH 7.24 pH Units (7.32-7.45); ABG PO2 69 mmHg (85-104); ABG TCO2 19.3 mEq/L (20-26); Blood Gas FiO2 60 %
[2017-02-05] MEDS: Heparin 25,000 UNIT/500 ML D5W 25,000 UNIT/500 ML MLS IVC SCH (13:18)
[2017-02-05 14:15] LABS: Hematocrit 35.1 % (35.3-44.9); Hemoglobin 11.3 g/dL (11.5-15.4); Mean Corpuscular HGB Conc 32.2 g/dL (31.6-35.5); Mean Corpuscular Hemoglobin 30.3 pg (28.0-33.3); Mean Corpuscular Volume 94.1 fL (83.0-100.0); Mean Platelet Volume 10.4 fL (9.4-12.4); Platelet Count 208 K/mcL (140-400); Red Blood Count 3.73 M/mcL (3.82-4.97)
[2017-02-05 14:30] LABS: INR 1.2; Prothrombin Time 12.5 Seconds (9.4-12.1)
[2017-02-05 14:33] LABS: Activated Partial Thrombo Time 38.7 Seconds (26.0-36.0)
--- NOTE | 2017-02-05 14:55 | Cardiology Consult Note ---
Date of Encounter: 02/05/17 Time of Encounter: 14:40 Assessment and Plan (1) Elevated troponin Current Visit: Yes Status: Acute Troponin 0.58, 3.82 in the setting of respiratory distress and severe sepsis. WBC now 33.6, lactic acid 3.1. Suspect secondary to demand ischemia (NSTEMI type II); however ACS cannot be ruled out. Patient denies chest pain upon exam, family denies pt. complaining of chest discomfort prior to admission. ECG unchanged from previous (October 2016)--LBBB. Continue to trend troponin, ECG x3. Agree with IV heparin gtt, asa, statin, and betablocker. No indication for cardiac rehab at this time. Recommend TTE to evaluate structure and function. Further recommendations to follow. (2) Severe sepsis Current Visit: Yes Status: Acute WBC, lactic acid continues to elevate--source likely GI in etiology. On ATB, continue supportive care. IM managing. Recommend transfer to higher acuity floor, 2N for closer observation. (3) CKD (chronic kidney disease) stage 4, GFR 15-29 ml/min Current Visit: Yes Status: Acute SCr stable, baseline 1.6-1.9 Discussion w patient/family: The assessment and plan as outlined above was discussed with the patient and/or family members who expressed understanding and agreement. All questions were answered. Thank you for involving us in the care of your patient. Please call with any questions. The patient will be discussed and reviewed with Dr. Mccoy; changes to be made accordingly. History of Present Illness Consult date: 02/05/17 Requesting physician: Gloria Mcmahon Consult reason: Elevated troponin Chief complaint: Abdominal pain History of present illness: Ms. Syed is a 81 year old female with PMHx significant for DMII, HTN, and CKD who presented to the ED with acute onset of abdominal pain that started around 1AM early this morning. Her states he noticed she was "moaning" in pain , was disoriented/confused and then called EMS. also noted she had difficulty breathing. He notes that prior to symptom onset patient was in normal state of health. Denies any recent medication changes, illness/flu-like symptoms, or change in diet. Upon arrival to the ED she was suspected to have severe sepsis with WBC 27.9, low grade temp 100.1, and elevated lactic acid at 2.9. ECG demonstrated LBBB which was unchanged from previous, initial troponin 0.58. Several episodes of diarrhea reported in ED. Lower extremity edema noted, however family reports edema is chronic and unchanged. No prior cardiac testing--family/ deny history of cardiac testing including stress test, echo, or LHC. Cardiology consulted today for troponin elevation 0.58-->3.82. Past Med Surg Social Fam HX - Past Medical History Attestation: Yes The following information was validated with the patient. Source: old records reviewed, obtained from family Medical history: arthritis, diabetes, hypertension, peripheral artery disease, renal disease, other Psychiatric history: depression - Past Surgical History Surgical History: appendectomy, cataract, colectomy, hysterectomy, other - Social History Smoking Status: Former smoker (quit 48 years ago) Smokeless Tobacco Status: No Alcohol use: none Drug use: none - Family History Father Living Status: Hx Family Cardiac Disorders: Yes Mother Living Status: Hx Family Cardiac Disorders: Yes Medications and Allergies Aspirin [Adult Low Dose Aspirin EC] 81 mg PO DAILY 08/23/15 [History] Biotin 5 mg PO DAILY 08/23/15 [History] BuPROPion SR (12 HR) [Wellbutrin SR] 100 mg PO DAILY 08/23/15 [History] Cholecalciferol (Vitamin D3) [Vitamin D3] 5,000 unit PO DAILY 08/23/15 [History] Glimepiride [Amaryl] 4 mg PO DAILY 08/23/15 [History] Insulin Glargine,Hum.rec.anlog [Lantus Solostar] 26 unit SQ HS 08/23/15 [History ] Losartan Potassium [Cozaar] 100 mg PO DAILY 08/23/15 [History] Metoprolol [Lopressor] 50 mg PO BID 08/23/15 [History] Promethazine [Phenergan] 12.5 mg PO Q6HR 08/23/15 [History] Zolpidem [Ambien] 5 mg PO HS 08/23/15 [History] amLODIPine [Norvasc] 10 mg PO DAILY 08/23/15 [History] Meclizine HCl [Bonine] 25 mg PO TID PRN #10 tab.chew 10/14/16 [Rx] HYDROcodone/Acet 7.5/325 mg [[place] 7.5-325 mg] 1 tab PO Q4H PRN 02/05/17 [ History] 3 Allergy/AdvReac Type Severity Reaction Status Date / Time Penicillins Allergy See Verified 02/05/17 05:56 Comments pregabalin [From Lyrica] Allergy See Verified 02/05/17 05:56 Comments All Systems Review: A 10-system review of systems was performed and is negative for pertinent findings except as documented above in the HPI. - Cardiovascular Cardiovascular: as per HPI Physical Examination Vital Signs, Last 4 Hours Resp Pulse Ox 02/05/17 12:35 35 91 General: Other (appears acutely ill; on bipap) Cardiac: Reg Rate and Rhythm, Normal S1 and S2 Lungs: Normal Breath Sounds Neuro: Other (responds appropriately to simple yes/no questions. ) Abdomen: Soft (mild tenderness) Extremities: Other (BLE edema, +1 (chronic, unchanged); erythema to LLE) Results 02/05/17 13:35 02/05/17 06:05 Lab Results 02/05/17 02/05/17 02/05/17 12:07 13:35 13:35 WBC 33.6 H* Hgb 11.3 L Hct 35.1 L Plt Count 208 INR 1.2 APTT 38.7 H Troponin I 3.82 H* Impressions Chest X-Ray 02/05/17 04:43 IMPRESSION: Cardiomegaly with clear lungs. D/ / Russel Denise MD / Russel Denise MD Head CT 02/05/17 04:44 IMPRESSION: Limited exam with no acute hemorrhage or definite evidence for acute ischemia. D/ / Russel Denise MD / Russel Denise MD Abdomen/Pelvis CT 02/05/17 06:05 IMPRESSION: 1. Inflammatory stranding adjacent to the proximal sigmoid colon in the left lower quadrant. Underlying fatty mass is suggested. Overall, findings may represent epiploic appendagitis or inflammation of a prominent lymph node with fatty hilum of unclear etiology. Acute diverticulitis is considered less likely as no inflamed diverticula are identified. 2. Severe diverticulosis. 3. Cholelithiasis. 4. Interlobular septal thickening of the lung bases, compatible with mild interstitial edema. Interpreting Provider: Stella Roach MD Active Medications Acetaminophen (Tylenol) 650 mg PO Q6HR PRN PRN Reason: Fever Stop: 08/07/17 10:00 Hydrocodone Bitart/Acetaminophen ([place] 7.5-325 Mg) 1 tab PO Q4H PRN PRN Reason: Moderate Pain Stop: 08/07/17 09:51 Amlodipine Besylate (Norvasc) 10 mg PO DAILY [facility] PRN Reason: Protocol Stop: 08/07/17 10:01 Last Admin: 02/05/17 10:49 Dose: 10 mg Aspirin (Aspirin Ec) 81 mg PO DAILY [facility] Stop: 08/07/17 10:01 Last Admin: 02/05/17 10:48 Dose: 81 mg Aspirin (Aspirin) 243 mg PO ONCE ONE Stop: 02/06/17 12:48 Bupropion HCl (Wellbutrin Sr) 100 mg PO DAILY [facility] Stop: 08/08/17 09:01 Dextrose/Water (Dextrose 50% (Syg)) 25 ml IVP AD PRN PRN Reason: Hypoglycemia Stop: 08/07/17 09:48 Docusate Sodium (Colace) 100 mg PO BID PRN PRN Reason: Constipation Stop: 08/07/17 09:44ia Stop: 08/07/17 09:48 Heparin Sodium (Porcine) (Heparin) 4,000 unit IVP Q6HR PRN PRN Reason: SEE COMMENTS Stop: 08/07/17 12:46 Heparin Sodium (Porcine) (Heparin) 2,000 unit IVP Q6H PRN PRN Reason: SEE COMMENTS Stop: 08/07/17 12:46 Ciprofloxacin Lactate (Cipro Premix 400 Mg/200 Ml) 400 mg in 200 mls @ 200 mls/ hr IVPB Q24H [facility] Stop: 08/07/17 18:01 Metronidazole (Flagyl Premix 500 Mg/100 Ml) 500 mg in 100 mls @ 100 mls/hr IVPB Q8HR [facility] Stop: 08/07/17 16:01 Sodium Bicarbonate 150 meq/ (Sodium Chloride) 1,150 mls @ 100 mls/hr IVC .[id number] [facility] Stop: 02/05/17 21:14 Last Admin: 02/05/17 11:54 Dose: 100 mls/hr Magnesium Sulfate 1 gm/ (Dextrose) 102 mls @ 100 mls/hr IVPB Q4HR [facility] Stop: 02/05/17 21:02 Last Infusion: 02/05/17 13:12 Dose: Infused Dextrose (Dextrose 5%) 1,000 mls @ 100 mls/hr IVC .Q10H PRN PRN Reason: HYPOGLYCEMIA Stop: 08/07/17 09:48 Sodium Chloride (0.9 % Sodium Chloride) 1,000 mls @ 75 mls/hr IVC .[id number] [facility] Stop: 08/07/17 09:46 Heparin Sodium/Dextrose (Heparin 25,000 Unit/500 Ml D5w) 25,000 unit in 500 mls @ 19.999 mls/hr IVC .Q24H [facility]; 11.305 UNIT/KG/HR PRN Reason: Protocol Stop: 08/07/17 12:46 Last Admin: 02/05/17 13:18 Dose: 11.305 unit/kg/hr, 19.999 mls/hr Insulin Detemir (Levemir) 26 unit SQ HS [facility] Stop: 08/07/17 21:01 Insulin Human Lispro (Humalog) 0 units SQ TIDAC [facility] PRN Reason: Protocol Stop: 08/07/17 11:31 Insulin Human Lispro (Humalog) 0 units SQ HS [facility] PRN Reason: Protocol Stop: 08/07/17 21:01 Losartan Potassium (Cozaar) 100 mg PO DAILY [facility] Stop: 08/08/17 09:01 Metoprolol Tartrate (Lopressor) 50 mg PO BID [facility] Stop: 08/07/17 10:01 Last Admin: 02/05/17 10:49 Dose: 50 mg Morphine Sulfate (Morphine Sulfate) 2 mg IVP Q4HR PRN PRN Reason: Severe Pain (7-10) Stop: 08/07/17 09:44 Naloxone HCl (Narcan) 0.4 mg IVP Q2MIN PRN PRN Reason: Opioid Reversal Stop: 08/07/17 09:44 Omeprazole (Prilosec) 20 mg PO DAILY@0630 [facility] PRN Reason: Protocol Stop: 08/08/17 06:31 Ondansetron HCl (Zofran) 4 mg IVP Q8HR PRN PRN Reason: Nausea And Vomiting Stop: 08/07/17 09:44 Promethazine HCl (Phenergan) 12.5 mg PO Q6HR [facility] Stop: 08/07/17 12:01 Vitamin D (Vitamin D) 1,000 unit PO DAILY [facility] Stop: 08/08/17 09:01 Zolpidem Tartrate (Ambien) 5 mg PO HS [facility] PRN Reason: Protocol Stop: 08/07/17 21:01 - Imaging and Cardiology Chest Xray: report reviewed Echo: pending Other Results: Tele review: avg HR=74 (poor quality tracing) - EKG Interpretation EKG results cardiology: personally reviewed Consult Discharge Plan - Plan Referrals: Leonel Ulloa MD [Primary Care Provider] -
--- NOTE | 2017-02-05 14:56 | Electrocardiograph Report ---
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
[2017-02-05] MEDS ORDERED: *HR* Heparin 5,000 UNIT/ML VIAL SQ SCH (18:00)
[2017-02-05] MEDS: MetroNIDAZOLE 500 MG/100 ML 500 MG/100 ML BAG IVPB SCH (18:40)
[2017-02-05 18:50] LABS: Calcium 8.9 mg/dL (8.6-10.8); Potassium 4.3 mEq/L (3.5-4.5)
[2017-02-05] MEDS: Insulin DETEMIR 100 UNIT/ML X5UNITS SQ SCH (22:40)
[2017-02-05] MEDS: 0.9 % Sodium Chloride 1,000 ML IVC SCH (22:42)
[2017-02-05 22:59] LABS: Activated Partial Thrombo Time 221.2 Seconds (26.0-36.0)
[2017-02-05 23:08] LABS: Heparin anti-factor XA UFH 1.06 IU/mL (0.30-0.70)
[2017-02-06] MEDS: MetroNIDAZOLE 500 MG/100 ML 500 MG/100 ML BAG IVPB SCH ×3 (02:33→17:23)
[2017-02-06] MEDS: *HR* HYDROcodone/Acet 7.5/325 mg TABLET PO PRN (06:42)
[2017-02-06 06:58] LABS: Basophils % 0.2 %; Hematocrit 29.3 % (35.3-44.9); Hemoglobin 10.1 g/dL (11.5-15.4); Immature Granulocytes % 1.9 % (0-4); Lymphocytes # 2.1 K/mcL (0.6-4.6); Lymphocytes % 8.6 %; Mean Corpuscular HGB Conc 34.5 g/dL (31.6-35.5); Mean Corpuscular Hemoglobin 31.4 pg (28.0-33.3); Mean Platelet Volume 10.3 fL (9.4-12.4); Monocytes # 1.3 K/mcL (0.0-1.3); Monocytes % 5.4 %; Neutrophils # 20.4 K/mcL (1.6-8.9); Platelet Count 149 K/mcL (140-400); Red Blood Count 3.22 M/mcL (3.82-4.97); Segmented Neutrophils % 83.9 %
[2017-02-06] MEDS: 0.9 % Sodium Chloride 1,000 ML IVC SCH (07:07)
[2017-02-06 07:08] LABS: Albumin 2.6 g/dL (3.5-5.0); Albumin/Globulin Ratio 0.7 (1.1-2.2); Bilirubin,Total 0.4 mg/dL (0.2-1.2); Calcium 8.3 mg/dL (8.6-10.8); Globulin 3.7 g/dL (2.4-3.5); Magnesium 1.8 mg/dL (1.6-2.6); Phosphorous 2.7 mg/dL (2.3-4.7); Potassium 3.6 mEq/L (3.5-4.5); Total Protein 6.3 g/dL (6.0-8.3)
[2017-02-06] MEDS: Insulin LISPRO 300 UNITS/3 ML VIAL SQ SCH ×4 (08:08→20:20)
--- NOTE | 2017-02-06 08:58 | Internal Med Progress Note ---
Date of Encounter: 02/06/17 Time of Encounter: 08:51 - Assessment and plan (1) NSTEMI (non-ST elevated myocardial infarction) Current Visit: Yes Status: Acute Assessment and plan: Patient presented with abdominal pain, generalized weakness and noted to have significant elevation in serum troponin, trending up. No EKG changes. Cardiology consult appreciated- agreed with anticoagulation with IV Heparin drip and continue beta-gunnar and statin. Echocardiogram is a technically challenged study, shows at least mild left ventricular systolic dysfunction. Plan for possible left heart catheterization for ischemia evaluation tomorrow, if medically stable. Continue telemetry monitoring and cycle troponins. (2) Afib Current Visit: Yes Status: Acute Assessment and plan: Patient is noted to have new onset atrial fibrillation with rapid ventricular rate, noticed today on telemetry. Continue oral beta gunnar and start IV Cardizem drip for appropriate heart rate controlled. Echocardiogram as below. Continue IV heparin drip. Patient noted to have agitation and respiratory distress, chest x-ray shows evidence of pulmonary vascular congestion. Start noninvasive positive pressure ventilation, will give a dose of IV Ativan and start IV Lasix, supportive care. Qualifiers: Atrial fibrillation type: paroxysmal Qualified Code(s): I48.0 - Paroxysmal atrial fibrillation (3) Severe sepsis Current Visit: Yes Status: Acute Assessment and plan: Unclear if this is true sepsis. Patient did have SIRS criteria with leukocytosis, low-grade fever, tachycardia and tachypnea however no clear source of infection identified. Chest x-ray shows no evidence of infiltrates. Urinalysis not suggestive of UTI. CT abdomen/pelvis however, does show nonspecific changes suggestive of pericolonic inflammation adjacent to the sigmoid colon. Continue empiric IV antibiotics. Lactic acid noted to be slightly elevated, continue to trend. Patient's symptoms are likely related to underlying non-ST elevation LA rather than sepsis. (4) Diarrhea Current Visit: Yes Status: Acute Assessment and plan: Currently improved. Continue empiric IV antibiotics as above. Stool for Clostridium difficile toxin negative. Qualifiers: Diarrhea type: unspecified type Qualified Code(s): R19.7 - Diarrhea, unspecified (5) Hypophosphatemia Current Visit: Yes Status: Acute Assessment and plan: Improved with IV supplements. (6) Diabetes mellitus Current Visit: Yes Status: Chronic Assessment and plan: Continue Accu-Chek blood glucose monitoring with sliding scale insulin. Check hemoglobin A1c. Diabetic diet as tolerated. Qualifiers: Diabetes mellitus type: type 2 Diabetes mellitus complication status: with neurologic complications Diabetes mellitus complication detail: with polyneuropathy Diabetes mellitus bed bug exterminator insulin use: without bed bug exterminator use Qualified Code(s): E11.42 - Type 2 diabetes mellitus with diabetic polyneuropathy (7) CKD (chronic kidney disease) Current Visit: Yes Status: Chronic Qualifiers: Chronic kidney disease stage: stage 4 (severe) Qualified Code(s): N18.4 - Chronic kidney disease, stage 4 (severe) (8) Hypomagnesemia Current Visit: Yes Status: Resolved Assessment and plan: Resolved with IV magnesium sulfate. (9) HTN (hypertension) Current Visit: Yes Status: Chronic Qualifiers: Hypertension type: essential hypertension Qualified Code(s): I10 - Essential (primary) hypertension (10) PAD (peripheral artery disease) Current Visit: Yes Status: Chronic - Subjective Interval history: Feels better; improved abdominal pain and diarrhea; breathing better, off BIPAP this morning; tolerates liquid diet; - Constitutional Vitals: Temp Pulse Resp BP Pulse Ox 99.1 F 75 20 99/75 99 02/06/17 07:34 02/06/17 06:53 02/06/17 06:53 02/06/17 06:53 02/06/17 06:53 General appearance: Present: A&O X 3, obese, answers questions appropriately - Respiratory Respiratory exam: Present: CTAB. Absent: accessory muscle use, rales, rhonchi, wheezes - Cardiovascular Cardiovascular exam: Present: RRR, +S1, +S2, tachycardia. Absent: diastolic murmur, gallop, rubs, systolic murmur - GI/Abdominal GI/Abdominal exam: Present: normal bowel sounds, soft, no peritoneal signs. Absent: distended, tenderness - Extremities Exam Extremities exam: Present: pedal edema, warm, radial pulses palpable and symmetrical. Absent: calf tenderness, cyanotic Additional comments: B/L pedal edema and erythema, left>right; ?calf tenderness - Neurological Exam Neurological exam: Present: CN II-XII intact, oriented X3, no focal deficits. Absent: pronater drift, facial droop, speech deficit Internal Medicine: Result - Labs CBC & Chem 7: 02/06/17 06:40 02/06/17 06:40 Labs: Short CBC 02/05/17 02/06/17 Range/Units 13:35 06:40 WBC 33.6 H* 24.3 H (4.3-11.1) K/mcL Hgb 11.3 L 10.1 L (11.5-15.4) g/dL Hct 35.1 L 29.3 L (35.3-44.9) % Plt Count 208 149 (140-400) K/mcL Neutrophils # 20.4 H (1.6-8.9) K/mcL BMP 02/05/17 02/06/17 18:17 06:40 Sodium 138 139 Potassium 4.3 3.6 Chloride 107 102 Carbon Dioxide 19 24 BUN 37 H 36 H Creatinine 1.94 H 1.77 H Glucose 308 H 178 H Calcium 8.9 8.3 L Cardiac Enzymes 02/05/17 02/05/17 Range/Units 12:07 18:14 Troponin I 3.82 H* 10.56 H* (0-0.03) ng/mL Liver Function 02/06/17 Range/Units 06:40 Total Bilirubin 0.4 (0.2-1.2) mg/dL AST 96 H (5-34) Units/L ALT 24 (0-55) Units/L Alkaline Phosphatase 44 (38-126) Units/L Albumin 2.6 L D (3.5-5.0) g/dL - ABG Interpretation ABG results: ABG ABG pH 7.24 pH Units (7.32-7.45) L 02/05/17 12:56 ABG pCO2 42 mmHg (35-45) 02/05/17 12:56 ABG pO2 69 mmHg (85-104) L 02/05/17 12:56 ABG O2 Saturation 90 % (95-98) L 02/05/17 12:56 PT/INR, D-dimer PT 12.5 Seconds (9.4-12.1) H 02/05/17 13:35 Consult Discharge Plan - Plan Referrals: Leonel Ulloa MD [Primary Care Provider] - (SENT WEB REQUEST ON 02-06-17 @ [id number])
[2017-02-06] MEDS: amLODIPine 5 MG TABLET PO SCH (09:02)
[2017-02-06] MEDS: Aspirin Enteric Coated 81 MG Tablet PO SCH (09:09)
[2017-02-06] MEDS: BuPROPion SR (12 HR) 100 MG TABLET PO SCH (09:09)
[2017-02-06] MEDS: Cholecalciferol (D-3) 1,000 UNIT TABLET PO SCH (09:09)
--- NOTE | 2017-02-06 09:14 | Cardiology Progress Note ---
Date of Encounter: 02/06/17 Time of Encounter: 09:00 Assessment and Plan (1) NSTEMI (non-ST elevated myocardial infarction) Current Visit: Yes Status: Acute Troponin 0.58, 3.82, 10.56 in the setting of severe abdominal pain, respiratory distress, and severe sepsis. Patient denies chest pain upon exam, family denies pt. complaining of chest discomfort prior to admission. ECG unchanged from previous (October 2016)--LBBB. Preliminary read on TTE demonstrates reduced LVEF, etiology and chronicity unclear; however suspect ischemic in etiology. Agree with IV heparin gtt, asa, statin, and betablocker. Given new cardiomyopathy and increasing troponin, recommend LHC with possible PCI. Alternatives, risks (including increased risk for JONO d/t hx of CKD), and benefits discussed with patient and family. Pt/family wish to discuss with other family members prior to making final decision. Further recommendations to follow. (2) Cardiomyopathy Current Visit: Yes Status: Acute Preliminary TTE read shows reduced LVEF--no prior assessment of LVEF. Etiology and chronicity unclear. Recommend LHC to assess for ischemic etiology. Decrease IVF to 50 mL/hr; no significant volume overload upon exam. Continue betablocker, ARB on hold d/t hypotension. Strict I&O's, daily weights, Na/fluid restriction diet. Further recommendations to follow. Qualifiers: Cardiomyopathy type: unspecified Qualified Code(s): I42.9 - Cardiomyopathy , unspecified (3) Afib Current Visit: Yes Status: Acute Suspected new onset afib this AM--HR 100's-110's. No hx of AF. Recommend rate control strategy for now; continue betablocker as BP will tolerate. Continue heparin gtt. CHA2Ds Vasc= 6-7 (age, gender, CHF, HTN, DMII, and presumed CAD). Continue heparin gtt for now. Further recommendations for full anticoagulation to follow once testing completed. Qualifiers: Atrial fibrillation type: paroxysmal Qualified Code(s): I48.0 - Paroxysmal atrial fibrillation (4) Severe sepsis Current Visit: Yes Status: Acute Source likely GI in etiology. On ATB, continue supportive care. IM managing. (5) CKD (chronic kidney disease) stage 4, GFR 15-29 ml/min Current Visit: Yes Status: Acute SCr stable, baseline 1.6-1.9 Discussion w patient/family: The assessment and plan as outlined above was discussed with the patient and/or family members who expressed understanding and agreement. All questions were answered. Thank you for involving us in the care of your patient. Please call with any questions. The patient will be discussed and reviewed with Dr. Mccoy; changes to be made accordingly. Subjective Principal diagnosis: Sepsis, NSTEMI Interval history: Seen and examined with family at bedside this AM. No longer dependent on Bipap. Patient is more alert and oriented today; remains drowsy. Alert and oriented x3. Abdominal pain has improved, shortness of breath improving. Remains weak. Long discussion with family/patient this AM regarding plan of care. Objective Vital Signs, Last 4 Hours Temp Pulse Resp BP Pulse Ox 02/06/17 07:34 99.1 F 02/06/17 06:53 75 20 99/75 99 General: Conversant, Other (appears acutely ill. ) HEENT: Atraumatic, Normocephaly Cardiac: Other (irregularly irregular) Lungs: Other (mildly decreased bibasilar) Neuro: Alert and responsive, No focal deficits noted, Other (mild tremor noted-- pt/family state this is chronic) Abdomen: Soft Extremities: Other (+1 BLE edema, LLE redness) Results 02/06/17 06:40 02/06/17 06:40 Lab Results 02/05/17 02/05/17 02/05/17 12:07 13:35 13:35 WBC 33.6 H* Hgb 11.3 L Hct 35.1 L Plt Count 208 INR 1.2 APTT 38.7 H Sodium Potassium Chloride Carbon Dioxide BUN Creatinine Glucose Calcium Magnesium Total Bilirubin AST ALT Alkaline Phosphatase Troponin I 3.82 H* 02/05/17 02/05/17 02/05/17 18:14 18:17 22:31 WBC Hgb Hct Plt Count INR APTT 221.2 H* D Sodium 138 Potassium 4.3 Chloride 107 Carbon Dioxide 19 BUN 37 H Creatinine 1.94 H Glucose 308 H Calcium 8.9 Magnesium Total Bilirubin AST ALT Alkaline Phosphatase Troponin I 10.56 H* 02/06/17 02/06/17 02/06/17 06:40 06:40 06:40 WBC 24.3 H Hgb 10.1 L Hct 29.3 L Plt Count 149 INR APTT 101.6 H D Sodium 139 Potassium 3.6 Chloride 102 Carbon Dioxide 24 BUN 36 H Creatinine 1.77 H Glucose 178 H Calcium 8.3 L Magnesium 1.8 Total Bilirubin 0.4 AST 96 H ALT 24 Alkaline Phosphatase 44 Troponin I Active Medications Acetaminophen (Tylenol) 650 mg PO Q6HR PRN PRN Reason: Fever Stop: 08/07/17 10:00 Last Admin: 02/05/17 22:35 Dose: 650 mg Hydrocodone Bitart/Acetaminophen ([place] 7.5-325 Mg) 1 tab PO Q4H PRN PRN Reason: Moderate Pain Stop: 08/07/17 09:51 Last Admin: 02/06/17 06:42 Dose: 1 tab Amlodipine Besylate (Norvasc) 10 mg PO DAILY [facility] PRN Reason: Protocol Stop: 08/07/17 10:01 Last Admin: 02/06/17 09:02 Dose: Not Given Aspirin (Aspirin Ec) 81 mg PO DAILY [facility] Stop: 08/07/17 10:01 Last Admin: 02/06/17 09:09 Dose: 81 mg Aspirin (Aspirin) 243 mg PO ONCE ONE Stop: 02/06/17 12:48 Atorvastatin Calcium (Lipitor) 40 mg PO HS [facility] Stop: 08/08/17 21:01 Bupropion HCl (Wellbutrin Sr) 100 mg PO DAILY [facility] Stop: 08/08/17 09:01 Last Admin: 02/06/17 09:09 Dose: 100 mg Docusate Sodium (Colace) 100 mg PO BID PRN PRN Reason: Constipation Stop: 08/07/17 09:44 Heparin Sodium (Porcine) (Heparin) 4,000 unit IVP Q6HR PRN PRN Reason: SEE COMMENTS Stop: 08/07/17 12:46 Last Admin: 02/05/17 16:24 Dose: 4,000 unit Heparin Sodium (Porcine) (Heparin) 2,000 unit IVP Q6H PRN PRN Reason: SEE COMMENTS Stop: 08/07/17 12:46 Ciprofloxacin Lactate (Cipro Premix 400 Mg/200 Ml) 400 mg in 200 mls @ 200 mls/ hr IVPB Q24H [facility] Stop: 08/07/17 18:01 Last Admin: 02/05/17 19:01 Dose: 200 mls/hr Metronidazole (Flagyl Premix 500 Mg/100 Ml) 500 mg in 100 mls @ 100 mls/hr IVPB Q8H [facility] Stop: 08/07/17 18:01 Last Admin: 02/06/17 09:10 Dose: 100 mls/hr Sodium Chloride (0.9 % Sodium Chloride) 1,000 mls @ 75 mls/hr IVC .[id number] [facility] Stop: 08/07/17 09:46 Last Admin: 02/06/17 07:07 Dose: Not Given Heparin Sodium/Dextrose (Heparin 25,000 Unit/500 Ml D5w) 25,000 unit in 500 mls @ 19.999 mls/hr IVC .Q24H [facility]; 11.305 UNIT/KG/HR PRN Reason: Protocol Stop: 08/07/17 12:46 Last Titration: 02/06/17 07:34 Dose: 10.5 unit/kg/hr, 18.575 mls/hr Insulin Detemir (Levemir) 26 unit SQ HS [facility] Stop: 08/07/17 21:01 Last Admin: 02/05/17 22:40 Dose: 26 unit Insulin Human Lispro (Humalog) 0 units SQ TIDAC [facility] PRN Reason: Protocol Stop: 08/07/17 11:31 Last Admin: 02/06/17 08:08 Dose: 4 units Insulin Human Lispro (Humalog) 0 units SQ HS [facility] PRN Reason: Protocol Stop: 08/07/17 21:01 Last Admin: 02/05/17 22:40 Dose: 4 units Losartan Potassium (Cozaar) 100 mg PO DAILY [facility] Stop: 08/08/17 09:01 Last Admin: 02/06/17 09:02 Dose: Not Given Metoprolol Tartrate (Lopressor) 50 mg PO BID [facility] Stop: 08/07/17 10:01 Last Admin: 02/06/17 09:09 Dose: 50 mg Morphine Sulfate (Morphine Sulfate) 2 mg IVP Q4HR PRN PRN Reason: Severe Pain (7-10) Stop: 08/07/17 09:44 Naloxone HCl (Narcan) 0.4 mg IVP Q2MIN PRN PRN Reason: Opioid Reversal Stop: 08/07/17 09:44 Omeprazole (Prilosec) 20 mg PO DAILY@0630 [facility] PRN Reason: Protocol Stop: 08/08/17 06:31 Last Admin: 02/06/17 05:19 Dose: 20 mg Ondansetron HCl (Zofran) 4 mg IVP Q8HR PRN PRN Reason: Nausea And Vomiting Stop: 08/07/17 09:44 Promethazine HCl (Phenergan) 12.5 mg PO Q6HR [facility] Stop: 08/07/17 12:01 Last Admin: 02/06/17 05:20 Dose: 12.5 mg Vitamin D (Vitamin D) 1,000 unit PO DAILY [facility] Stop: 08/08/17 09:01 Last Admin: 02/06/17 09:09 Dose: 1,000 unit Zolpidem Tartrate (Ambien) 5 mg PO HS [facility] PRN Reason: Protocol Stop: 08/07/17 21:01 Last Admin: 02/05/17 22:40 Dose: Not Given - Imaging and Cardiology Echo: pending Other Results: 12 hour tele: avg HR=74 SR LBBB, noted to convert to afib this AM. - EKG Interpretation EKG results cardiology: personally reviewed Consult Discharge Plan - Plan Referrals: Leonel Ulloa MD [Primary Care Provider] -
[2017-02-06] MEDS ORDERED: 0.9 % Sodium Chloride 1,000 ML IVC SCH (09:23)
[2017-02-06] MEDS ORDERED: *HR* Metoprolol 5 MG/5 ML VIAL IVP PRN (10:13)
[2017-02-06] MEDS ORDERED: *HR* LORazepam 2 MG/ML VIAL IVP ONE ×2 (11:21→23:39)
[2017-02-06] MEDS ORDERED: *HR* LORazepam 2 MG/ML VIAL ONE ×2 (11:24→23:40)
[2017-02-06] MEDS: Heparin 25,000 UNIT/500 ML D5W 25,000 UNIT/500 ML MLS IVC SCH (11:32)
[2017-02-06] MEDS ORDERED: Furosemide 20 MG/2 ML VIAL IVP ONE ×2 (12:33→21:00)
[2017-02-06] MEDS ORDERED: Aspirin 81 MG TAB.CHEW PO ONE (12:47)
--- NOTE | 2017-02-06 17:49 | Electrocardiograph Report ---
[place] [address] Test Date: 2017-02-06 Pat Name: Sherice Syed Department: 110 Room: 2N02 Gender: F Nurse Technician: STARR : 1935 Requested By: Katty Britton Order Number: [id number] Reading MD: Suyz Rios Measurements Intervals [place] Rate: 102 P: SC: 0 QRS: -50 QRSD: 160 T: 125 QT: 402 QTc: 461 Interpretive Statements ATRIAL FIBRILLATION WITH RAPID VENTRICULAR RESPONSE LEFT BUNDLE BRANCH BLOCK Electronically Signed On 02-06-2017 17:48:17 EDT by Suzy Rios
--- NOTE | 2017-02-06 18:14 | Electrocardiograph Report ---
[place] [address] Test Date: 2017-02-05 Pat Name: Sherice Seyd Department: 112 Room: 2N02 Gender: F [employer] Supervisor: HOMAR : 1935 Requested By: Katty Britton Order Number: [id number] Reading MD: Suzy Rios Measurements Intervals [place] Rate: 78 P: 91 AR: 243 QRS: -44 QRSD: 157 T: 120 QT: 430 QTc: 464 Interpretive Statements SINUS RHYTHM WITH FIRST DEGREE AV BLOCK LEFT BUNDLE BRANCH BLOCK Electronically Signed On 02-06-2017 18:12:23 EDT by Suzy Rios
[2017-02-06] MEDS: Insulin DETEMIR 100 UNIT/ML X5UNITS SQ SCH (20:20)
[2017-02-06] MEDS: *HR* Heparin 5,000 UNIT/ML VIAL IVP PRN (21:10)
[2017-02-07] MEDS: MetroNIDAZOLE 500 MG/100 ML 500 MG/100 ML BAG IVPB SCH ×3 (01:45→17:45)
[2017-02-07 03:07] LABS: Basophils % 0.1 %; Hematocrit 30.7 % (35.3-44.9); Hemoglobin 10.3 g/dL (11.5-15.4); Immature Granulocytes % 1.6 % (0-4); Lymphocytes # 1.9 K/mcL (0.6-4.6); Lymphocytes % 8.6 %; Mean Corpuscular HGB Conc 33.6 g/dL (31.6-35.5); Mean Corpuscular Hemoglobin 30.8 pg (28.0-33.3); Mean Corpuscular Volume 91.9 fL (83.0-100.0); Monocytes # 1.2 K/mcL (0.0-1.3); Monocytes % 5.4 %; Neutrophils # 18.4 K/mcL (1.6-8.9); Platelet Count 153 K/mcL (140-400); Red Blood Count 3.34 M/mcL (3.82-4.97); Red Cell Distribution Width 13.2 % (11.5-14.5); Segmented Neutrophils % 84.3 %
[2017-02-07 03:28] LABS: Calcium 8.4 mg/dL (8.6-10.8); Magnesium 1.5 mg/dL (1.6-2.6); Potassium 3.3 mEq/L (3.5-4.5)
[2017-02-07] MEDS: amLODIPine 5 MG TABLET PO SCH (07:59)
[2017-02-07] MEDS: Aspirin Enteric Coated 81 MG Tablet PO SCH (07:59)
[2017-02-07] MEDS: Cholecalciferol (D-3) 1,000 UNIT TABLET PO SCH (08:00)
[2017-02-07] MEDS: BuPROPion SR (12 HR) 100 MG TABLET PO SCH (08:00)
[2017-02-07] MEDS: Insulin LISPRO 300 UNITS/3 ML VIAL SQ SCH ×4 (08:15→21:19)
[2017-02-07] MEDS ORDERED: Magnesium Sulfate 2 GM in D5% in Water 100 ML IVPB ONE (08:42)
--- NOTE | 2017-02-07 09:29 | Venous Imaging Report ---
LE Venous Duplex Patient Name:Sherice Syed Order Number:[id number] Procedure Date:02/05/2017 Date:4Age:81 yrs Gender:Female Location:[facility] Room #: 2A11 Flitch Hanger:Emily Baker RVT Referring MD:Afsaneh Elizondo DO brigadier:Leonel Ulloa MD Reading MD:Tomas Watts MD Secondary Indications: Risk Factors Yes/No None Impressions: Bilateral lower extremity: normal superficial and deep exam. Findings Venous Duplex Results: Right: Venous imaging of the lower extremity reveals full patency and normal vessel compressibility of the right distal iliac, right common femoral, right superficial femoral, right popliteal, right posterior tibial, right peroneal, right great saphenous and right lesser saphenous. Doppler signals in the evaluated veins were normal. Left: Venous imaging of the lower extremity reveals full patency and normal vessel compressibility of the left distal iliac, left common femoral, left superficial femoral, left popliteal, left posterior tibial, left peroneal, left great saphenous and left lesser saphenous. Doppler signals in the evaluated veins were normal. Prior Study: No prior study available for comparison. Updated by Tomas Watts MD on 02/07/2017 9:22:38 AM electronically signed on 02/07/2017 9:22:55 AM with status of Final
[2017-02-07] MEDS: Heparin 25,000 UNIT/500 ML D5W 25,000 UNIT/500 ML MLS IVC SCH ×2 (09:30→13:45)
[2017-02-07] MEDS ORDERED: Furosemide 40 MG/4 ML VIAL IVP ONE ×3 (10:17→14:59)
--- NOTE | 2017-02-07 11:29 | Cardiology Progress Note ---
Date of Encounter: 02/07/17 Time of Encounter: 11:27 Assessment and Plan (1) NSTEMI (non-ST elevated myocardial infarction) Current Visit: Yes Status: Acute Findings c/w NSTEMI. LV function not well seen per TTE report. Personally reviewed images, LVEF appears to be about 35%. Possible infectious issue being managed by IM. Intermittent respitory issues, abnormal CXR - likely HFrEF. Recommend stop IVFs. Currently positive overall fluid balance. Agree with diuresis. Give addition 40 mg lasix now to make 80 mg this morning. Try to optimize breathing in preparation for LHC. R/B/A to [facility] discussed with patient and family. All understand risks, including worsening renal function, stroke, [place], and . Currently patient remains chest pain free. Recommend continue aspirin/statin/bb therapy. Will try to titrate BB as able and wean cardizem to off. Overall prognosis guarded given age and multiple comorbidities. (2) Cardiomyopathy Current Visit: Yes Status: Acute P Qualifiers: Cardiomyopathy type: unspecified Qualified Code(s): I42.9 - Cardiomyopathy , unspecified (3) Left bundle branch block Current Visit: Yes Status: Acute (4) Afib Current Visit: Yes Status: Acute AF with RVR, better controlled. Agree with BB - titrate as able. Will wean cardizem to off. Continue heparin. half-way AC to be decided after potential LHC. Qualifiers: Atrial fibrillation type: paroxysmal Qualified Code(s): I48.0 - Paroxysmal atrial fibrillation Discussion w patient/family: The assessment and plan as outlined above was discussed with the patient and/or family members who expressed understanding and agreement. All questions were answered. Thank you for involving us in the care of your patient. Please call with any questions. Subjective Principal diagnosis: Sepsis, NSTEMI Interval history: Patient seen and examined. AF remains. HR better, but remains > 100. Overall, patient remains chest pain free. Dyspnea, periods of hypoxia noted. Intermittently requiring BIPAP. Leukocytosis, low grade fever noted. No clear infection per IM - nonspecific changes noted on abdominal CT. Emperic antibiotics being given. LHC considered yesterday, family requested to wait 24 hours. Objective Vital Signs, Last 4 Hours Temp Pulse Resp BP Pulse Ox 02/07/17 08:00 99.7 F H 95 21 145/83 96 General: Conversant, No Apparent Distress HEENT: Atraumatic, Normocephaly, Mucus Membranes Moist Cardiac: Other (Irregular rate and rhythm. Difficult to appreciate murmurs. ) Lungs: Other (Shallow bases. ) Neuro: Alert and responsive, No focal deficits noted Abdomen: Soft, Non-Tender Skin: No rashes noted on visualized skin Musculoskeletal: No Chest Wall Tenderness Extremities: No Clubbing, No Cyanosis, No Edema Results 02/07/17 03:00 02/07/17 03:00 Lab Results 02/06/17 02/06/17 02/07/17 14:05 20:14 03:00 WBC 21.9 H Hgb 10.3 L Hct 30.7 L Plt Count 153 APTT 61.2 H 52.7 H Sodium Potassium Chloride Carbon Dioxide BUN Creatinine Glucose Calcium Magnesium 02/07/17 02/07/17 02/07/17 03:00 03:00 09:23 WBC Hgb Hct Plt Count APTT 105.8 H D 65.0 H Sodium 138 Potassium 3.3 L Chloride 102 Carbon Dioxide 25 BUN 38 H Creatinine 1.94 H Glucose 180 H Calcium 8.4 L Magnesium 1.5 L - Imaging and Cardiology Echo: report reviewed - EKG Interpretation EKG results cardiology: personally reviewed Consult Discharge Plan - Plan Referrals: Raina Choi CNP [Advanced Practice Nurse] - 02/13/17 3:00 pm
[2017-02-07] MEDS ORDERED: *HR* LORazepam 2 MG/ML VIAL IVP PRN (12:24)
[2017-02-07] MEDS: Metoprolol XL (24 HR) Succ 25 MG TAB.ER.24H PO SCH ×2 (13:45→20:14)
--- NOTE | 2017-02-07 14:19 | Event Note ---
Date of Encounter: 02/07/17 Time of Encounter: 13:30 - Cardiology Event Note Patient seen and reevaluated with family at bedside. Respirations remain somewhat labored at rest and now back on BiPAP. She continues to deny chest pain. Previous records reviewed and discussed with Dr. Mccoy, chest x-ray from yesterday shows worsening CHF. Received Lasix 40 mg IV 1 couple hours ago with so far minimal effect. We'll continue to attempt to diuresis. Monitor kidney function closely. Evaluate for further ischemic evaluation tomorrow. Patient and family agreed and all questions answered. Heart rate currently in the 60s to 70s. Cardizem drip now down from 20 mg per hour to 10 mg per hour. Switched to long-acting beta gunnar. Will attempt to wean off IV Cardizem drip- - recommend avoiding cars and if able due to decreased EF. Norvasc discontinued to allow for blood pressure room and titration of beta gunnar.
--- NOTE | 2017-02-07 15:22 | Internal Med Progress Note ---
Date of Encounter: 02/07/17 Time of Encounter: 11:45 - Assessment and plan (1) Cardiomyopathy Current Visit: Yes Status: Acute Assessment and plan: New onset CHF with underlying atrial fibrillation and non-ST elevation NC. Personal review of echocardiogram by consulting boat captain revealed severely reduced ejection fraction around 35%. Continue diuresis with IV Lasix, urine output monitoring and fluid restriction. Continue beta gunnar. Qualifiers: Cardiomyopathy type: unspecified Qualified Code(s): I42.9 - Cardiomyopathy , unspecified (2) NSTEMI (non-ST elevated myocardial infarction) Current Visit: Yes Status: Acute Assessment and plan: Patient presented with abdominal pain, generalized weakness and noted to have significant elevation in serum troponin, trending up. Cardiology consult appreciated- agreed with anticoagulation with IV Heparin drip and continue beta- gunnar and statin. Plan for possible left heart catheterization for ischemia evaluation tomorrow, if medically stable. Patient continues to require noninvasive positive pressure ventilation and IV diuresis. Continue telemetry monitoring and cycle troponins. Echocardiogram seems to revealed severely decreased EF around 35% on personal review of the consulting boat captain. (3) Afib Current Visit: Yes Status: Acute Assessment and plan: Patient is noted to have new onset atrial fibrillation with rapid ventricular rate, has been started on IV Cardizem drip, heart rate currently better controlled. Plan to change to beta gunnar and avoid calcium channel blockers due to low EF. Continue IV heparin drip. Patient noted to have agitation and respiratory distress, chest x-ray shows evidence of pulmonary vascular congestion. Continue IV Lasix and BiPAP support as needed. Qualifiers: Atrial fibrillation type: paroxysmal Qualified Code(s): I48.0 - Paroxysmal atrial fibrillation (4) Severe sepsis Current Visit: Yes Status: Acute Assessment and plan: Unclear if this is true sepsis. Patient did have SIRS criteria with leukocytosis, low-grade fever, tachycardia and tachypnea however no clear source of infection identified. Chest x-ray shows no evidence of infiltrates. Urinalysis not suggestive of UTI. CT abdomen/pelvis however, does show nonspecific changes suggestive of pericolonic inflammation adjacent to the sigmoid colon. Continue empiric IV antibiotics-ciprofloxacin and Flagyl. Lactic acid noted to be slightly elevated, currently normal-could be related to non-STEMI. Patient's symptoms are likely related to underlying non-ST elevation NC rather than sepsis. Case discussed with infectious disease service, agree with current management, full consult when available. (5) Diarrhea Current Visit: Yes Status: Resolved Qualifiers: Diarrhea type: unspecified type Qualified Code(s): R19.7 - Diarrhea, unspecified (6) Hypophosphatemia Current Visit: Yes Status: Resolved Assessment and plan: Improved with IV supplementation with sodium/K phosphate. (7) Diabetes mellitus Current Visit: Yes Status: Chronic Assessment and plan: Continue Accu-Chek blood glucose monitoring with sliding scale insulin. Check hemoglobin A1c. Diabetic diet as tolerated. Qualifiers: Diabetes mellitus type: type 2 Diabetes mellitus complication status: with neurologic complications Diabetes mellitus complication detail: with polyneuropathy Diabetes mellitus intermediate insulin use: without intermediate use Qualified Code(s): E11.42 - Type 2 diabetes mellitus with diabetic polyneuropathy (8) CKD (chronic kidney disease) Current Visit: Yes Status: Chronic Qualifiers: Chronic kidney disease stage: stage 4 (severe) Qualified Code(s): N18.4 - Chronic kidney disease, stage 4 (severe) (9) Hypomagnesemia Current Visit: Yes Status: Acute Assessment and plan: Likely related to use of diuretics. Supplement with IV magnesium sulfate. (10) HTN (hypertension) Current Visit: Yes Status: Chronic Assessment and plan: Blood pressure noted to be stable. Norvasc has been held due to borderline low blood pressure while on Cardizem drip. Continue beta gunnar. Qualifiers: Hypertension type: essential hypertension Qualified Code(s): I10 - Essential (primary) hypertension (11) PAD (peripheral artery disease) Current Visit: Yes Status: Chronic - Subjective Interval history: Reports feeling okay; remains chest pain free; continues to require BiPAP support; gets intermittently very agitated and anxious, requiring IV Ativan; - Constitutional Vitals: Temp Pulse Resp BP Pulse Ox 100 F H 84 28 93/60 89 02/07/17 12:00 02/07/17 12:00 02/07/17 12:00 02/07/17 12:02/07/17 12:00 General appearance: Present: mild distress, A&O X 3, obese, answers questions appropriately - Respiratory Respiratory exam: Present: CTAB, rales (faint crackles B/L bases), wheezes (end expiratory wheezing at left base). Absent: accessory muscle use, rhonchi - Cardiovascular Cardiovascular exam: Present: RRR, +S1, +S2, tachycardia. Absent: diastolic murmur, gallop, rubs, systolic murmur - GI/Abdominal GI/Abdominal exam: Present: normal bowel sounds, soft, no peritoneal signs. Absent: distended, tenderness - Neurological Exam Neurological exam: Present: CN II-XII intact, oriented X3, no focal deficits. Absent: pronater drift, facial droop, speech deficit Internal Medicine: Result - Labs CBC & Chem 7: 02/07/17 03:00 02/07/17 03:00 Labs: Short CBC 02/07/17 Range/Units 03:00 WBC 21.9 H (4.3-11.1) K/mcL Hgb 10.3 L (11.5-15.4) g/dL Hct 30.7 L (35.3-44.9) % Plt Count 153 (140-400) K/mcL Neutrophils # 18.4 H (1.6-8.9) K/mcL BMP 02/07/17 03:00 Sodium 138 Potassium 3.3 L Chloride 102 Carbon Dioxide 25 BUN 38 H Creatinine 1.94 H Glucose 180 H Calcium 8.4 L - ABG Interpretation ABG results: ABG ABG pH 7.24 pH Units (7.32-7.45) L 02/05/17 12:56 ABG pCO2 42 mmHg (35-45) 02/05/17 12:56 ABG pO2 69 mmHg (85-104) L 02/05/17 12:56 ABG O2 Saturation 90 % (95-98) L 02/05/17 12:56 PT/INR, D-dimer PT 12.5 Seconds (9.4-12.1) H 02/05/17 13:35 Consult Discharge Plan - Plan Referrals: Raina Choi, DIRECTOR [employer]GAN[employer]ATION [Advanced Practice Nurse] - 02/13/17 3:00 pm
[2017-02-07] MEDS: Furosemide 40 MG/4 ML VIAL IV SCH (20:15)
[2017-02-07] MEDS: *HR* HYDROcodone/Acet 7.5/325 mg TABLET PO PRN (20:42)
[2017-02-07] MEDS ORDERED: Furosemide 40 MG/4 ML VIAL IV SCH (21:00)
[2017-02-07] MEDS: Insulin DETEMIR 100 UNIT/ML X5UNITS SQ SCH (21:20)
[2017-02-08] MEDS: MetroNIDAZOLE 500 MG/100 ML 500 MG/100 ML BAG IVPB SCH ×3 (01:56→20:11)
[2017-02-08 05:24] LABS: Basophils % 0.1 %; Hematocrit 30.7 % (35.3-44.9); Hemoglobin 10.3 g/dL (11.5-15.4); Immature Granulocytes % 1.2 % (0-4); Lymphocytes # 2.1 K/mcL (0.6-4.6); Lymphocytes % 11.1 %; Mean Corpuscular HGB Conc 33.6 g/dL (31.6-35.5); Mean Corpuscular Hemoglobin 30.9 pg (28.0-33.3); Mean Corpuscular Volume 92.2 fL (83.0-100.0); Mean Platelet Volume 11.1 fL (9.4-12.4); Monocytes # 0.8 K/mcL (0.0-1.3); Monocytes % 4.3 %; Neutrophils # 16.1 K/mcL (1.6-8.9); Platelet Count 165 K/mcL (140-400); Red Blood Count 3.33 M/mcL (3.82-4.97); Red Cell Distribution Width 12.8 % (11.5-14.5); Segmented Neutrophils % 83.3 %
[2017-02-08 05:39] LABS: Calcium 8.4 mg/dL (8.6-10.8); Magnesium 1.7 mg/dL (1.6-2.6); Phosphorous 3.3 mg/dL (2.3-4.7); Potassium 2.8 mEq/L (3.5-4.5)
[2017-02-08] MEDS: *HR* Heparin 5,000 UNIT/ML VIAL IVP PRN (05:49)
[2017-02-08] MEDS: Insulin LISPRO 300 UNITS/3 ML VIAL SQ SCH ×3 (08:37→15:49)
[2017-02-08] MEDS: Furosemide 40 MG/4 ML VIAL IV SCH (08:39)
[2017-02-08] MEDS: Metoprolol XL (24 HR) Succ 25 MG TAB.ER.24H PO SCH (08:39)
[2017-02-08] MEDS: Aspirin Enteric Coated 81 MG Tablet PO SCH (08:39)
[2017-02-08] MEDS ORDERED: Vancomycin 1,500 MG in D5% in Water 250 ML IVPB SCH (09:00)
--- NOTE | 2017-02-08 09:52 | Internal Med Progress Note ---
Date of Encounter: 02/08/17 Time of Encounter: 09:15 - Assessment and plan (1) Cardiomyopathy Current Visit: Yes Status: Acute Assessment and plan: Newly diagnosed CHF with underlying atrial fibrillation and non-ST elevation CT. Personal review of echocardiogram by consulting optical glass inspector revealed severely reduced ejection fraction around 35%. Continue diuresis with IV Lasix , urine output monitoring and fluid restriction. Patient does not seem to be improving with current therapy; cannot achieve negative fluid balance due to multiple IVs and inappropriate urine output; may need Lasix drip or changing to Bumex; Monitor renal function closely; Continue beta gunnar. Case d/w Cardiology, recommend transferring to ICU for further management and closer monitoring; Case d/w Moving Worker and patient will be transferred to ICU for higher level of care at this time; Qualifiers: Cardiomyopathy type: unspecified Qualified Code(s): I42.9 - Cardiomyopathy , unspecified (2) NSTEMI (non-ST elevated myocardial infarction) Current Visit: Yes Status: Acute Assessment and plan: Patient presented with abdominal pain, generalized weakness but noted to have significant elevation in serum troponin, trending up, peak 10.56. Cardiology consult and f/up appreciated- agreed with anticoagulation with IV Heparin drip and continue beta-gunnar and statin. Chest pain-free; Plan for possible left heart catheterization for ischemia evaluation, however patient is not medically stable, with ongoing respiratory failure and volume overload. Patient continues to require noninvasive positive pressure ventilation and IV diuresis. Continue telemetry monitoring; Echocardiogram seems to revealed severely decreased EF around 35% on personal review of the consulting optical glass inspector. (3) Afib Current Visit: Yes Status: Acute Assessment and plan: Patient is noted to have new onset atrial fibrillation with rapid ventricular rate, has been started on IV Cardizem drip, heart rate still not appropriately controlled and BP continues to remain borderline low, with systolic in low 90s; Continue IV Cardizem drip per Cardiology, may change to IV Amiodarone drip; Continue IV heparin drip. Qualifiers: Atrial fibrillation type: paroxysmal Qualified Code(s): I48.0 - Paroxysmal atrial fibrillation (4) Severe sepsis Current Visit: Yes Status: Acute Assessment and plan: Unclear if this is true sepsis. Patient did have SIRS criteria with leukocytosis with left shift, low-grade fever, tachycardia and tachypnea however no clear source of infection identified. Chest x-ray shows no evidence of infiltrates. Urinalysis not suggestive of UTI. CT abdomen/pelvis however, does show nonspecific changes suggestive of pericolonic inflammation adjacent to the sigmoid colon. Continue empiric IV antibiotics-ciprofloxacin and Flagyl. Lactic acid noted to be slightly elevated, currently normal-could be related to non-STEMI. Case discussed with infectious disease service, agree with current management, full consult when available. Preliminary blood cultures 07/18 from 02/05 grow [facility], reported this morning, unclear if this is contamination, will start IV Vancomycin, to be dosed by Pharmacy per GFR; will repeat blood cultures today; (5) Diarrhea Current Visit: Yes Status: Resolved Qualifiers: Diarrhea type: unspecified type Qualified Code(s): R19.7 - Diarrhea, unspecified (6) Hypophosphatemia Current Visit: Yes Status: Resolved (7) Diabetes mellitus Current Visit: Yes Status: Chronic Assessment and plan: Continue Accu-Chek blood glucose monitoring with sliding scale insulin. Check hemoglobin A1c. Diabetic diet as tolerated. Qualifiers: Diabetes mellitus type: type 2 Diabetes mellitus complication status: with neurologic complications Diabetes mellitus complication detail: with polyneuropathy Diabetes mellitus half-way insulin use: without half-way use Qualified Code(s): E11.42 - Type 2 diabetes mellitus with diabetic polyneuropathy (8) CKD (chronic kidney disease) Current Visit: Yes Status: Chronic Assessment and plan: Serum creatinine appears to be around baseline; high risk for worsening renal failure due to ongoing diuresis which the patient needs currently; Qualifiers: Chronic kidney disease stage: stage 4 (severe) Qualified Code(s): N18.4 - Chronic kidney disease, stage 4 (severe) (9) Hypomagnesemia Current Visit: Yes Status: Acute (10) HTN (hypertension) Current Visit: Yes Status: Chronic Assessment and plan: Blood pressure noted to be stable but low normal. Norvasc has been held due to borderline low blood pressure while on Cardizem drip. Continue beta gunnar. Qualifiers: Hypertension type: essential hypertension Qualified Code(s): I10 - Essential (primary) hypertension (11) Anxiety Current Visit: Yes Status: Acute Assessment and plan: Patient does not have h/o- anxiety or BDZ use at home; requiring intermittent doses of IV Ativan due to extreme anxiety and inability to keep BiPAP mask on; (12) PAD (peripheral artery disease) Current Visit: Yes Status: Chronic - Subjective Interval history: Continues to require BiPAP almost continuously; reports shortness of breath, orthopnea and feeling weak; no chest pain, nausea, vomiting, abdominal pain; - Constitutional Vitals: Temp Pulse Resp BP Pulse Ox 98.9 F 156 22 108/65 96 02/08/17 07:24 02/08/17 08:22 02/08/17 07:24 02/08/17 08:22 02/08/17 08:22 General appearance: Present: mild distress, A&O X 3, obese, answers questions appropriately - Respiratory Respiratory exam: Present: rales (B/L crackles at bases and midaxillary lines). Absent: accessory muscle use, rhonchi, wheezes - Cardiovascular Cardiovascular exam: Present: irregular rhythm, +S1, +S2, tachycardia. Absent: diastolic murmur, gallop, rubs, systolic murmur - GI/Abdominal GI/Abdominal exam: Present: normal bowel sounds, soft, no peritoneal signs. Absent: distended, tenderness - Extremities Exam Extremities exam: Present: pedal edema (trace dependent pedal edema B/L), warm, radial pulses palpable and symmetrical. Absent: calf tenderness, cyanotic - Neurological Exam Neurological exam: Present: CN II-XII intact, oriented X3, no focal deficits. Absent: pronater drift, facial droop, speech deficit - Skin Skin exam: Present: dry, intact Internal Medicine: Result - Labs CBC & Chem 7: 02/08/17 04:55 02/08/17 04:55 Labs: Short CBC 02/08/17 Range/Units 04:55 WBC 19.3 H (4.3-11.1) K/mcL Hgb 10.3 L (11.5-15.4) g/dL Hct 30.7 L (35.3-44.9) % Plt Count 165 (140-400) K/mcL Neutrophils # 16.1 H (1.6-8.9) K/mcL BMP 02/08/17 04:55 Sodium 138 Potassium 2.8 L Chloride 101 Carbon Dioxide 25 BUN 44 H Creatinine 2.16 H Glucose 228 H Calcium 8.4 L - ABG Interpretation ABG results: ABG ABG pH 7.24 pH Units (7.32-7.45) L 02/05/17 12:56 ABG pCO2 42 mmHg (35-45) 02/05/17 12:56 ABG pO2 69 mmHg (85-104) L 02/05/17 12:56 ABG O2 Saturation 90 % (95-98) L 02/05/17 12:56 PT/INR, D-dimer PT 12.5 Seconds (9.4-12.1) H 02/05/17 13:35 Consult Discharge Plan - Plan Referrals: Raina Choi, MORTGAGE UNDERWRITER [Advanced Practice Nurse] - 02/13/17 3:00 pm
--- NOTE | 2017-02-08 09:58 | Pulmonology Consult Note ---
<Liam Kramer W - Last Filed: 02/08/17 11:14> Date of Encounter: 02/08/17 Time of Encounter: 09:59 Medications and Allergies Aspirin [Adult Low Dose Aspirin EC] 81 mg PO DAILY 08/23/15 [History] Biotin 5 mg PO DAILY 08/23/15 [History] BuPROPion SR (12 HR) [Wellbutrin SR] 100 mg PO DAILY 08/23/15 [History] Cholecalciferol (Vitamin D3) [Vitamin D3] 5,000 unit PO DAILY 08/23/15 [History] Glimepiride [Amaryl] 4 mg PO DAILY 08/23/15 [History] Insulin Glargine,Hum.rec.anlog [Lantus Solostar] 26 unit SQ HS 08/23/15 [History ] Losartan Potassium [Cozaar] 100 mg PO DAILY 08/23/15 [History] Metoprolol [Lopressor] 50 mg PO BID 08/23/15 [History] Promethazine [Phenergan] 12.5 mg PO Q6HR 08/23/15 [History] Zolpidem [Ambien] 5 mg PO HS 08/23/15 [History] amLODIPine [Norvasc] 10 mg PO DAILY 08/23/15 [History] Meclizine HCl [Bonine] 25 mg PO TID PRN #10 tab.chew 10/14/16 [Rx] HYDROcodone/Acet 7.5/325 mg [Mulberry 7.5-325 mg] 1 tab PO Q4H PRN 02/05/17 [ History] 3 Allergy/AdvReac Type Severity Reaction Status Date / Time Penicillins Allergy See Verified 02/05/17 05:56 Comments pregabalin [From Lyrica] Allergy See Verified 02/05/17 05:56 Comments All Systems: A 10-system review of systems was performed and is negative for pertinent findings except as documented above in the HPI. Physical Examination Vital Signs: Vital Signs, Last 4 Hours Temp Pulse Resp BP Pulse Ox 02/08/17 08:22 156 108/65 96 02/08/17 07:24 98.9 F 123 22 89/55 95 Results - Laboratory Findings CBC and BMP: 02/08/17 04:55 02/08/17 04:55 ABG ABG pH 7.24 pH Units (7.32-7.45) L 02/05/17 12:56 ABG pCO2 42 mmHg (35-45) 02/05/17 12:56 ABG pO2 69 mmHg (85-104) L 02/05/17 12:56 ABG O2 Saturation 90 % (95-98) L 02/05/17 12:56 PT/INR, D-dimer PT 12.5 Seconds (9.4-12.1) H 02/05/17 13:35 Abnormal lab findings: Abnormal lab results WBC 19.3 K/mcL (4.3-11.1) H 02/08/17 04:55 RBC 3.33 M/mcL (3.82-4.97) L 02/08/17 04:55 Hgb 10.3 g/dL (11.5-15.4) L 02/08/17 04:55 Hct 30.7 % (35.3-44.9) L 02/08/17 04:55 Neutrophils # 16.1 K/mcL (1.6-8.9) H 02/08/17 04:55 Hyposegmented Neuts Present (Not Present) A 02/05/17 06:05 Reactive Lymphocytes Present (Not Present) A 02/05/17 06:05 Toxic Granulation Present (Not Present) A 02/05/17 06:05 Toxic Vacuolation Present (Not Present) A 02/05/17 06:05 PT 12.5 Seconds (9.4-12.1) H 02/05/17 13:35 APTT 50.1 Seconds (26.0-36.0) H 02/08/17 04:55 Heparin Anti-Xa, Unfract 1.06 IU/mL (0.30-0.70) H* 02/05/17 22:31 ABG pH 7.24 pH Units (7.32-7.45) L 02/05/17 12:56 ABG pO2 69 mmHg (85-104) L 02/05/17 12:56 ABG HCO3 18.0 mEQ/L (21-27) L 02/05/17 12:56 ABG Total CO2 19.3 mEq/L (20-26) L 02/05/17 12:56 ABG O2 Saturation 90 % (95-98) L 02/05/17 12:56 ABG Base Excess -9.0 mEq/L (-2.0 to 3.0) L 02/05/17 12:56 Potassium 2.8 mEq/L (3.5-4.5) L 02/08/17 04:55 BUN 44 mg/dL (7-20) H 02/08/17 04:55 Creatinine 2.16 mg/dL (0.57-1.11) H 02/08/17 04:55 Est GFR ( Amer) 26 (> 60) L 02/08/17 04:55 Est GFR (Non-Af Amer) 22 (> 60) L 02/08/17 04:55 Glucose 228 mg/dL (70-99) H 02/08/17 04:55 POC Glucose 193 (58-89) H 02/07/17 21:15 Calculated Osmolality 304 (280-300) H 02/08/17 04:55 Calcium 8.4 mg/dL (8.6-10.8) L 02/08/17 04:55 AST 96 Units/L (5-34) H 02/06/17 06:40 Troponin I 10.56 ng/mL (0-0.03) H* 02/05/17 18:14 B-Natriuretic Peptide 306 pg/mL (0-100) H 02/05/17 06:05 Albumin 2.6 g/dL (3.5-5.0) L D 02/06/17 06:40 Globulin 3.7 g/dL (2.4-3.5) H 02/06/17 06:40 Albumin/Globulin Ratio 0.7 (1.1-2.2) L 02/06/17 06:40 Urine Clarity Cloudy (Clear) A 02/05/17 05:05 Urine Protein 30 mg/dL (Neg-Trace) H 02/05/17 05:05 Urine Microscopic RBC 3-5 per hpf (0-3) H 02/05/17 05:05 Ur Squamous Epith Cells Many per lpf (None-Few) H 02/05/17 05:05 Urine Bacteria Many per hpf (None-Few) H 02/05/17 05:05 - Clinical Findings Intake & Output: Intake & Output 02/07/17 02/08/17 02/08/17 23:59 07:59 15:59 Intake Total 320 / 320 350 / 350 Output Total 1300 / 1300 830 / 830 Balance -980 / -980 -480 / -480 Weight 100.2 kg Consult Discharge Plan - Plan Referrals: Raina Choi, VEGETABLE TRIMMER [Advanced Practice Nurse] - 02/13/17 3:00 pm - Attending Attestation I examined this patient and my medical decision-making was reviewed with the Resident Physician. I agree with the documented findings, disposition and treatment plan as described except to the extent set forth below. We independently had [id number] contact with the patient Patient seen and examined at bedside Labs, radiology, chart personally reviewed. Neuropsych: Mild delirium would avoid benzodiazepines if worsening agitation start Precedex infusion. We will also focus on religion of sleep-wake cycle. avoid sensory deprivation, and avoid SAFETY INVESTIGATOR/CAUSE ANALYST depressant medications as able. Pulm: Acute hypoxic respiratory failure which is likely secondary to cardiogenic pulmonary edema. We will continue positive airway pressure support for cardiogenic pulmonary edema as needed. Repeat ABG pending Cards: An STEMI with decompensated heart failure was reduced ejection fraction complicated by atrial fibrillation with rapid ventricular response continue ACS protocol cardiology following plan for left heart catheter when more stable because of low blood pressure and intravascular volume depletion she has not responded favorably to diuresis feel primary focus should be on religion of normal sinus rhythm and agree with cardiology loading the patient with amiodarone for this cause I would avoid jessica blocking agents at this time as able because of low output state with increase in renal perfusion suspect we can restart diuresis. Although she has decompensated heart failure I do not think that she is in cardiogenic shock at the moment. We will recheck lactate today FEN-GI: Nothing by mouth for now she has evidence of mild sigmoid colitis. She is being treated with Flagyl GI panel pending Renal: Worsening acute on chronic kidney injury which is multifactorial including sepsis, vascular congestion and hypotension continue renal protective strategy. Would continue to favor cautiously continuing diuresis at this time to improve cardiac mechanical engineering advisor as above renal dose all medications. Continue to monitor electrolytes daily replace per protocol. She presented with mixed anion gap acidosis however that has resolved. No acute indication for renal replacement therapy. She has a high risk of deterioration to needing this and will pursue nephrology consult in next 24 hours if worsening serum creatinine clearance ID: Severe sepsis secondary to gram-positive bacteremia final speciation pending (repeat cultures today) this is also likely complicated by mild colitis she is on vancomycin and Flagyl for this reason I would stop Cipro (and add ceftriaxone for gram negative coverage) aher advanced age this could have SAFETY INVESTIGATOR/CAUSE ANALYST alterations. She has a history of urinary tract infections in the past although no clear evidence of urinary tract infection Heme/Onc: She is receiving ACS protocol heparin H&H and platelets are stable continue to monitor this Endo: Glucose Monitored Integ/MSK: Skin Care per routine ICU Nursing Protocol to prevent ulcers. Lines: Peripheral IVs Dispo: Transfer to ICU for ongoing care she is a high risk of sudden deterioration because of cardiac status and respiratory failure CODE: Full code family updated at bedside <Tristan Roach - Last Filed: 02/08/17 13:28> Date of Encounter: 02/08/17 Assessment and Plan (1) Cardiomyopathy Current Visit: Yes Status: Acute This patient was newly diagnosed with congestive heart failure with underlying atrial fibrillation and a non-ST elevation [place]. Echocardiogram obtained revealed severely reduced ejection fraction around 35%. This patient currently has an x-ray revealing increased bilateral perihilar edema and new bilateral effusions. I think that this is contributing to this patient's shortness of breath. We will continue gentle diuresis with the IV Lasix as this patient shows decreasing renal function. We did give her 80 mg of Lasix this morning. Since midnight, this patient took in 450 mL and has put out 1430 mL. We will continue to keep this patient on an negative fluid balance to help resolve her pulmonary edema. This patient is followed closely with cardiology. Atrial fibrillation is probably a significant player in this patient having this pulmonary edema. This patient is currently on an amiodarone drip to manage her rhythm. I suspect that once her rhythm is under control, this will significantly help this patient from a blood pressure standpoint as well as from a pulmonary standpoint. Qualifiers: Cardiomyopathy type: unspecified Qualified Code(s): I42.9 - Cardiomyopathy , unspecified (2) NSTEMI (non-ST elevated myocardial infarction) Current Visit: Yes Status: Acute The patient presented with abdominal pain, generalized weakness, and was noted to have significant elevations in troponin trending upward and peaked at 10.56. Cardiology started this patient on anticoagulation with IV heparin drip at the low dose acute coronary syndrome protocol. They started a beta gunnar and a statin at that time. Patient is currently pain-free. There is a plan for a left heart catheterization for ischemia evaluation but this is pending medical stabilization. At this time, I have stopped all jessica blocking agents and will continue with the amiodarone per cardiology. We will continue monitoring this patient for any new onset chest pain. (3) Afib Current Visit: Yes Status: Acute See above Qualifiers: Atrial fibrillation type: paroxysmal Qualified Code(s): I48.0 - Paroxysmal atrial fibrillation (4) Severe sepsis Current Visit: Yes Status: Acute This patient had an initial lactate of 2.8 on February 05. The repeat lactate on February 06 was 1.8. This patient does have a CT scan of the abdomen and pelvis that shows possible diverticulitis. She has 2 blood cultures that are positive for gram-positive cocci. At this time, we will treat this patient with vancomycin, Rocephin, and Flagyl. She was on ciprofloxacin, but she started having mild delirium. We will discontinue the ciprofloxacin as this can be a huge contributing factor to an elderly patient's delirium. He will continue monitoring her mental status. Currently, this patient's blood pressure is at 110/62. We will continue monitoring her blood pressure. If it drops, we will consider using Levophed. A central line has not been placed so that will be something needs to be considered at that time. Fluid administration would probably worsen her shortness of breath so we will be cautious as we approach any hypotension. (5) Diarrhea Current Visit: Yes Status: Resolved This patient has had diarrhea. We will order a GI panel at this time. Qualifiers: Diarrhea type: unspecified type Qualified Code(s): R19.7 - Diarrhea, unspecified (6) Hypomagnesemia Current Visit: Yes Status: Acute We will place via the electrolyte protocol. (7) Hypophosphatemia Current Visit: Yes Status: Resolved We will replace the electrolyte protocol. (8) Anxiety Current Visit: Yes Status: Acute As this patient is experiencing some mild delirium, we will stop Ativan at this time. I have ordered Precedex for acute episodes of agitation. (9) Diabetes mellitus Current Visit: Yes Status: Chronic Currently on medium dose sliding scale insulin. Her last glucose was 228. If this continues to be the trend, he will consider raising it to a high corrective sliding scale dosing. Qualifiers: Diabetes mellitus type: type 2 Diabetes mellitus complication status: with neurologic complications Diabetes mellitus complication detail: with polyneuropathy Diabetes mellitus chcf insulin use: without dedicated intermodal truck driver use Qualified Code(s): E11.42 - Type 2 diabetes mellitus with diabetic polyneuropathy (10) DVT prophylaxis Current Visit: Yes Status: Acute Currently on a low-dose heparin drip via the acute coronary syndrome protocol. History of Present Illness Consult date: 02/08/17 Reason for consult: other (Shortness of breath on BiPAP, refractory to medical management) Chief complaint: Shortness of breath, NSTEMI History of present illness: This is an 82-year-old female who presented to the emergency department 3 days ago with shortness of breath, abdominal pain. She was diagnosed with a non-ST segment elevated myocardial infarction with a troponin level of 2.56 and new- onset atrial fibrillation. She had a BNP of 306. There were no ST segment elevations on her EKG. She did receive an echocardiogram that revealed septal wall motion abnormalities and is severely reduced ejection fraction of around 35 %. This patient has been medically managed. The abdomen of IV Lasix, but has had poor urine output over the last couple days. Cardiology and this patient on IV diltiazem, beta gunnar, but due to lack of improvement, they decided to place the patient on an amiodarone drip. In addition to her non-ST segment elevated myocardial infarction, this patient was also diagnosed with severe sepsis. She had a CT scan of her abdomen and pelvis that showed possible diverticulitis. This patient was placed on ciprofloxacin and Flagyl. Upon questioning, the patient states that she is short of breath. She denies having any chest pain, pressure, tightness. She denies having any abdominal pain. She is currently on BiPAP. A more thorough history was unable to be obtained due to her respiratory distress. Past Med Surg Social Fam HX - Past Medical History Medical history: arthritis, diabetes, hypertension, peripheral artery disease, renal disease, other Psychiatric history: depression - Past Surgical History Surgical History: appendectomy, cataract, colectomy, hysterectomy, other - Social History Smoking Status: Former smoker (quit 48 years ago) Smokeless Tobacco Status: No Alcohol use: none Drug use: none - Family History Mother Living Status: Hx Family Cardiac Disorders: Yes Father Living Status: Hx Family Cardiac Disorders: Yes ROS unobtainable: other (Severe respiratory distress) All Systems: A 10-system review of systems was performed and is negative for pertinent findings except as documented above in the HPI. - Cardiovascular Cardiovascular: no chest pain - Respiratory Respiratory: dyspnea Physical Examination Vital Signs: Vital Signs, Last 4 Hours Temp Pulse Resp BP Pulse Ox 02/08/17 08:22 156 108/65 96 02/08/17 07:24 98.9 F 123 22 89/55 95 General appearance: appears uncomfortable, other (82-year-old female who appears to be in severe respiratory distress. She is dyspneic in conversation) Eyes: nonicteric ENT: oropharynx moist Effort: mildly labored Auscultation: bilateral: wheezes, rales Cardiovascular: irregular rhythm, other (Telemetry: Atrial fibrillation with a rate of 110.) Gastrointestinal: normoactive bowel sounds, soft, non-tender Integumentary: normal Extremities: no cyanosis, no edema, no clubbing, pink and warm, pulses normal, no ischemia or petechiae normal mental status, non-focal exam, pupils equal and round anxious Results - Laboratory Findings CBC and BMP: 02/08/17 04:55 02/08/17 11:35 ABG ABG pH 7.24 pH Units (7.32-7.45) L 02/05/17 12:56 ABG pCO2 42 mmHg (35-45) 02/05/17 12:56 ABG pO2 69 mmHg (85-104) L 02/05/17 12:56 ABG O2 Saturation 90 % (95-98) L 02/05/17 12:56 PT/INR, D-dimer PT 12.5 Seconds (9.4-12.1) H 02/05/17 13:35 Abnormal lab findings: Abnormal lab results WBC 19.3 K/mcL (4.3-11.1) H 02/08/17 04:55 RBC 3.33 M/mcL (3.82-4.97) L 02/08/17 04:55 Hgb 10.3 g/dL (11.5-15.4) L 02/08/17 04:55 Hct 30.7 % (35.3-44.9) L 02/08/17 04:55 Neutrophils # 16.1 K/mcL (1.6-8.9) H 02/08/17 04:55 Hyposegmented Neuts Present (Not Present) A 02/05/17 06:05 Reactive Lymphocytes Present (Not Present) A 02/05/17 06:05 Toxic Granulation Present (Not Present) A 02/05/17 06:05 Toxic Vacuolation Present (Not Present) A 02/05/17 06:05 PT 12.5 Seconds (9.4-12.1) H 02/05/17 13:35 APTT 50.1 Seconds (26.0-36.0) H 02/08/17 04:55 Heparin Anti-Xa, Unfract 1.06 IU/mL (0.30-0.70) H* 02/05/17 22:31 ABG pH 7.24 pH Units (7.32-7.45) L 02/05/17 12:56 ABG pO2 69 mmHg (85-104) L 02/05/17 12:56 ABG HCO3 18.0 mEQ/L (21-27) L 02/05/17 12:56 ABG Total CO2 19.3 mEq/L (20-26) L 02/05/17 12:56 ABG O2 Saturation 90 % (95-98) L 02/05/17 12:56 ABG Base Excess -9.0 mEq/L (-2.0 to 3.0) L 02/05/17 12:56 Potassium 2.8 mEq/L (3.5-4.5) L 02/08/17 04:55 BUN 44 mg/dL (7-20) H 02/08/17 04:55 Creatinine 2.16 mg/dL (0.57-1.11) H 02/08/17 04:55 Est GFR ( Amer) 26 (> 60) L 02/08/17 04:55 Est GFR (Non-Af Amer) 22 (> 60) L 02/08/17 04:55 Glucose 228 mg/dL (70-99) H 02/08/17 04:55 POC Glucose 193 (58-89) H 02/07/17 21:15 Calculated Osmolality 304 (280-300) H 02/08/17 04:55 Calcium 8.4 mg/dL (8.6-10.8) L 02/08/17 04:55 AST 96 Units/L (5-34) H 02/06/17 06:40 Troponin I 10.56 ng/mL (0-0.03) H* 02/05/17 18:14 B-Natriuretic Peptide 306 pg/mL (0-100) H 02/05/17 06:05 Albumin 2.6 g/dL (3.5-5.0) L D 02/06/17 06:40 Globulin 3.7 g/dL (2.4-3.5) H 02/06/17 06:40 Albumin/Globulin Ratio 0.7 (1.1-2.2) L 02/06/17 06:40 Urine Clarity Cloudy (Clear) A 02/05/17 05:05 Urine Protein 30 mg/dL (Neg-Trace) H 02/05/17 05:05 Urine Microscopic RBC 3-5 per hpf (0-3) H 02/05/17 05:05 Ur Squamous Epith Cells Many per lpf (None-Few) H 02/05/17 05:05 Urine Bacteria Many per hpf (None-Few) H 02/05/17 05:05 - Microbiology Findings Microbiology Findings: 2 positive blood cultures for gram-positive cocci - Diagnostic Findings Chest x-ray: report reviewed, image reviewed - Clinical Findings Intake & Output: Intake & Output 02/07/17 02/08/17 02/08/17 23:59 07:59 15:59 Intake Total 320 / 320 350 / 350 Output Total 1300 / 1300 830 / 830 Balance -980 / -980 -480 / -480 Weight 100.2 kg
[2017-02-08] MEDS ORDERED: Vancomycin 1,500 MG in D5% in Water 250 ML IVPB ONE ×2 (10:00→11:16)
--- NOTE | 2017-02-08 10:25 | Cardiology Progress Note ---
Date of Encounter: 02/08/17 Time of Encounter: 10:23 Assessment and Plan (1) NSTEMI (non-ST elevated myocardial infarction) Current Visit: Yes Status: Acute Findings c/w NSTEMI. LV function not well seen per TTE report. Personally reviewed images, LVEF appears to be about 35%. Possible infectious issue being managed by IM. Developement of pulmonary edema - IV lasix increased yesteray. Remains on PPV - now continuous 60% FIO2. Currently patient remains chest pain free. Continue aspirin/Plavix/statin/heparin. Hold BB. Stop Cardizem given relative hypotension. Start amiodarone for HR control. Overall prognosis guarded given age and multiple comorbidities. Consider LHC when able. Family updated and overall condition discussed. Given her advanced age and multiple organ systems involved, I would consider her prognosis guarded. They understand and will re-discuss code status wishes with Sherice. For now, patient will be transferred to ICU. May require vasopressors to support BP if no improvement. (2) Cardiomyopathy Current Visit: Yes Status: Acute Qualifiers: Cardiomyopathy type: unspecified Qualified Code(s): I42.9 - Cardiomyopathy , unspecified (3) Left bundle branch block Current Visit: Yes Status: Acute (4) Afib Current Visit: Yes Status: Acute AF with RVR. Relatively hypotensive. Start negative chronotropes due to low BP. Start amiodarone. Continue heparin drip. 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 Qualifiers: Atrial fibrillation type: paroxysmal Qualified Code(s): I48.0 - Paroxysmal atrial fibrillation (5) HERMINIA (acute kidney injury) Current Visit: Yes Status: Acute A/CKD in setting of ACS, relative hypotension with likely ATN, and worsened by diuresis. Discussion w patient/family: The assessment and plan as outlined above was discussed with the patient and/or family members who expressed understanding and agreement. All questions were answered. Thank you for involving us in the care of your patient. Please call with any questions. Subjective Principal diagnosis: Sepsis, NSTEMI Interval history: Patient seen and examined. Remains on PPV today. FIO2 requirements have gone up. HR better yesterday, now AF with RVR. Relatively hypotensive. Remains awake and answers questions. Noted delayed positive blood cultures - GPC. Objective Vital Signs, Last 4 Hours Temp Pulse Resp BP Pulse Ox 02/08/17 08:22 156 108/65 96 02/08/17 07:24 98.9 F 123 22 89/55 95 General: Conversant, Other (Ill appearing. ) HEENT: Atraumatic, Normocephaly, Mucus Membranes Moist Neck: No JVD, Normal carotid pulses Cardiac: Other (Distant, irregular, tachycardic. ) Lungs: Other (Shallow bases bilaterally. ) Neuro: Alert and responsive, No focal deficits noted Abdomen: Soft, Non-Tender Skin: No rashes noted on visualized skin Musculoskeletal: No Chest Wall Tenderness Extremities: No Clubbing (Trace edema bilaterally), No Cyanosis, Other (t) Results 02/08/17 04:55 02/08/17 04:55 Lab Results 02/07/17 02/08/17 02/08/17 15:30 04:55 04:55 WBC 19.3 H Hgb 10.3 L Hct 30.7 L Plt Count 165 APTT 58.0 H Sodium 138 Potassium 2.8 L Chloride 101 Carbon Dioxide 25 BUN 44 H Creatinine 2.16 H Glucose 228 H Calcium 8.4 L Magnesium 1.7 02/08/17 04:55 WBC Hgb Hct Plt Count APTT 50.1 H Sodium Potassium Chloride Carbon Dioxide BUN Creatinine Glucose Calcium Magnesium - Imaging and Cardiology Echo: report reviewed - EKG Interpretation EKG results cardiology: personally reviewed Consult Discharge Plan - Plan Referrals: Raina Choi RETAIL MORTGAGE BANKER [Advanced Practice Nurse] - 02/13/17 3:00 pm
[2017-02-08] MEDS ORDERED: Amiodarone Premix 150 MG/100 ML BAG IVPB ONE ×2 (10:34→11:16)
[2017-02-08] MEDS ORDERED: Amiodarone Premix 360 MG/200 ML BAG IVC ONE ×2 (10:50→11:16)
[2017-02-08] MEDS ORDERED: *HR* LORazepam 2 MG/ML VIAL IVP PRN (11:16)
[2017-02-08] MEDS ORDERED: Dextrose Gel 15 GM PO PRN ×2 (11:16)
[2017-02-08] MEDS ORDERED: Naloxone 0.4 MG/ML INJ IVP PRN (11:16)
[2017-02-08] MEDS ORDERED: *HR* Dextrose 50 % in Water (Syg) 50 ML SYRINGE IVP PRN (11:16)
[2017-02-08] MEDS ORDERED: *HR* Morphine 2 MG/ML SYRINGE IVP PRN (11:16)
[2017-02-08] MEDS ORDERED: Ondansetron 4 MG/2 ML VIAL IVP PRN (11:16)
[2017-02-08] MEDS ORDERED: *HR* Heparin 5,000 UNIT/ML VIAL IVP PRN ×2 (11:16)
[2017-02-08] MEDS ORDERED: Acetaminophen 325 MG TABLET PO PRN (11:16)
[2017-02-08 11:52] LABS: ABG HCO3 29.1 mEQ/L (21-27); ABG Oxygen Saturation 96 % (95-98); ABG PCO2 40 mmHg (35-45); ABG PH 7.47 pH Units (7.32-7.45); ABG PO2 77 mmHg (85-104); ABG TCO2 30.3 mEq/L (20-26)
[2017-02-08 11:53] LABS: Blood Gas FiO2 60 %
[2017-02-08 12:08] LABS: Albumin 2.3 g/dL (3.5-5.0); Calcium 8.3 mg/dL (8.6-10.8); Phosphorous 2.8 mg/dL (2.3-4.7); Potassium 2.9 mEq/L (3.5-4.5)
[2017-02-08] MEDS: Dexmedetomidine HCl 400 MCG/100 ML MLS IVC SCH (12:23)
[2017-02-08] MEDS ORDERED: Magnesium Sulfate 2 GM in D5% in Water 100 ML IVPB PRN (13:31)
[2017-02-08] MEDS ORDERED: Calcium Gluconate 1,000 MG in D5% in Water 100 ML IVPB PRN (13:31)
[2017-02-08] MEDS ORDERED: Furosemide 40 MG/4 ML VIAL IVP ONE ×2 (14:25→15:00)
[2017-02-08] MEDS: Heparin 25,000 UNIT/500 ML D5W 25,000 UNIT/500 ML MLS IVC SCH (15:16)
[2017-02-08] MEDS ORDERED: Cefepime HCl 1,000 MG in D5% in Water (Mini-Bag+) 100 ML IVPB SCH (16:00)
[2017-02-08] MEDS ORDERED: Amiodarone Premix 360 MG/200 ML BAG IVC SCH (16:50)
--- NOTE | 2017-02-08 18:00 | Event Note ---
Date of Encounter: 02/08/17 Time of Encounter: 17:54 82/female I was called by MARCIO Moulton to evaluate this patient as patient's mental status was deteriorated. Chart reviewed and case discussed with team members who are actively involved in the patient's care. Noted that patient is presently on the NIV. Tried gentle tapping on the patient's shoulder and spoke with her in front of her family members. Patient responded to verbal/tactile stimuli. She opened her eyes and started communicating with the family. I left the room as many family members are around since today patient's birthday. Patient's Mr. Stanton followed me and asked me about her condition. I briefly explained and relayed the information which I gather from the chart. Mr. Stanton is keen to discuss the CODE STATUS. I discussed, explained updated and reviewed all for different options for CODE STATUS at length. Mr. Stanton chose his to be DNR comfort care arrest DNI. He understood the meaning of CODE STATUS very well. He verbalized understanding. Mr. Ambrocio family is aware of this new CODE STATUS and as per family Mr. Stanton is the decision-making person.
[2017-02-08] MEDS: Amiodarone Premix 360 MG/200 ML BAG IVC SCH (19:50)
[2017-02-08] MEDS ORDERED: Insulin DETEMIR 100 UNIT/ML X5UNITS SQ SCH (21:00)
[2017-02-08] MEDS ORDERED: Insulin LISPRO 300 UNITS/3 ML VIAL SQ SCH (21:00)
[2017-02-08] MEDS ORDERED: Furosemide 40 MG/4 ML VIAL IV SCH (21:00)
[2017-02-08] MEDS: *HR* HYDROcodone/Acet 7.5/325 mg TABLET PO PRN (23:46)
[2017-02-09] MEDS: MetroNIDAZOLE 500 MG/100 ML 500 MG/100 ML BAG IVPB SCH ×2 (02:05→09:44)
[2017-02-09 03:55] LABS: Basophils % 0.2 %; Hemoglobin 9.3 g/dL (11.5-15.4); Immature Granulocytes % 0.7 % (0-4); Immature Platelets 4.5 % (1.1-6.1); Lymphocytes # 2.2 K/mcL (0.6-4.6); Lymphocytes % 17.8 %; Mean Corpuscular HGB Conc 33.2 g/dL (31.6-35.5); Mean Corpuscular Hemoglobin 30.9 pg (28.0-33.3); Mean Platelet Volume 10.8 fL (9.4-12.4); Monocytes # 0.9 K/mcL (0.0-1.3); Monocytes % 7.4 %; Platelet Count 174 K/mcL (140-400); Red Blood Count 3.01 M/mcL (3.82-4.97); Red Cell Distribution Width 12.8 % (11.5-14.5); Segmented Neutrophils % 73.9 %
[2017-02-09 04:05] LABS: Ionized Calcium 1.02 mmol/L (1.15-1.35)
[2017-02-09 04:09] LABS: Albumin 2.2 g/dL (3.5-5.0); Albumin/Globulin Ratio 0.6 (1.1-2.2); Bilirubin,Total 0.5 mg/dL (0.2-1.2); Globulin 3.4 g/dL (2.4-3.5); Magnesium 1.5 mg/dL (1.6-2.6); Phosphorous 2.9 mg/dL (2.3-4.7); Potassium 3.3 mEq/L (3.5-4.5); Total Protein 5.6 g/dL (6.0-8.3)
[2017-02-09] MEDS: Amiodarone Premix 360 MG/200 ML BAG IVC SCH ×2 (04:48→15:54)
[2017-02-09] MEDS: *HR* HYDROcodone/Acet 7.5/325 mg TABLET PO PRN (05:42)
[2017-02-09] MEDS: Dexmedetomidine HCl 400 MCG/100 ML MLS IVC SCH (05:48)
[2017-02-09] MEDS ORDERED: Vancomycin 1,500 MG in D5% in Water 250 ML IVPB ONE (06:00)
[2017-02-09] MEDS ORDERED: Furosemide 40 MG/4 ML VIAL IVP ONE (06:54)
--- NOTE | 2017-02-09 07:04 | Pulmonology Progress Note ---
<JeaneanaLiam W - Last Filed: 02/09/17 08:03> Date of Encounter: 02/09/17 Objective PUL Vital signs: Last Vital Signs Temp 99.7 F H 02/09/17 04:00 Pulse 108 02/09/17 06:00 Resp 16 02/09/17 06:00 BP 100/69 02/09/17 06:00 Pulse Ox 99 02/09/17 06:00 Results - Laboratory Findings CBC and BMP: 02/09/17 03:45 02/09/17 03:45 ABG ABG pH 7.47 pH Units (7.32-7.45) H 02/08/17 11:43 ABG pCO2 40 mmHg (35-45) 02/08/17 11:43 ABG pO2 77 mmHg (85-104) L 02/08/17 11:43 ABG O2 Saturation 96 % (95-98) 02/08/17 11:43 PT/INR, D-dimer PT 12.5 Seconds (9.4-12.1) H 02/05/17 13:35 Abnormal lab findings: Abnormal lab results WBC 12.2 K/mcL (4.3-11.1) H 02/09/17 03:45 RBC 3.01 M/mcL (3.82-4.97) L 02/09/17 03:45 Hgb 9.3 g/dL (11.5-15.4) L 02/09/17 03:45 Hct 28.0 % (35.3-44.9) L 02/09/17 03:45 Neutrophils # 9.0 K/mcL (1.6-8.9) H 02/09/17 03:45 Hyposegmented Neuts Present (Not Present) A 02/05/17 06:05 Reactive Lymphocytes Present (Not Present) A 02/05/17 06:05 Toxic Granulation Present (Not Present) A 02/05/17 06:05 Toxic Vacuolation Present (Not Present) A 02/05/17 06:05 PT 12.5 Seconds (9.4-12.1) H 02/05/17 13:35 APTT 83.4 Seconds (26.0-36.0) H D 02/09/17 03:45 Heparin Anti-Xa, Unfract 1.06 IU/mL (0.30-0.70) H* 02/05/17 22:31 ABG pH 7.47 pH Units (7.32-7.45) H 02/08/17 11:43 ABG pO2 77 mmHg (85-104) L 02/08/17 11:43 ABG HCO3 29.1 mEQ/L (21-27) H 02/08/17 11:43 ABG Total CO2 30.3 mEq/L (20-26) H 02/08/17 11:43 ABG Base Excess 5.0 mEq/L (-2.0 to 3.0) H 02/08/17 11:43 Potassium 3.3 mEq/L (3.5-4.5) L 02/09/17 03:45 BUN 44 mg/dL (7-20) H 02/09/17 03:45 Creatinine 2.10 mg/dL (0.57-1.11) H 02/09/17 03:45 Est GFR ( Amer) 27 (> 60) L 02/09/17 03:45 Est GFR (Non-Af Amer) 22 (> 60) L 02/09/17 03:45 Glucose 167 mg/dL (70-99) H 02/09/17 03:45 POC Glucose 168 (58-89) H 02/08/17 19:08 Calcium 8.0 mg/dL (8.6-10.8) L 02/09/17 03:45 Ionized Calcium 1.02 mmol/L (1.15-1.35) L 02/09/17 03:45 Magnesium 1.5 mg/dL (1.6-2.6) L 02/09/17 03:45 AST 53 Units/L (5-34) H 02/09/17 03:45 Troponin I 10.56 ng/mL (0-0.03) H* 02/05/17 18:14 B-Natriuretic Peptide 306 pg/mL (0-100) H 02/05/17 06:05 Serum Total Protein 5.6 g/dL (6.0-8.3) L 02/09/17 03:45 Albumin 2.2 g/dL (3.5-5.0) L 02/09/17 03:45 Albumin/Globulin Ratio 0.6 (1.1-2.2) L 02/09/17 03:45 Urine Clarity Cloudy (Clear) A 02/05/17 05:05 Urine Protein 30 mg/dL (Neg-Trace) H 02/05/17 05:05 Urine Microscopic RBC 3-5 per hpf (0-3) H 02/05/17 05:05 Ur Squamous Epith Cells Many per lpf (None-Few) H 02/05/17 05:05 Urine Bacteria Many per hpf (None-Few) H 02/05/17 05:05 - Clinical Findings Intake & Output: Intake & Output 02/08/17 02/08/17 02/09/17 15:59 23:59 07:59 Intake Total 1067 / 1067 409 / 409 700 / 700 Output Total 1150 / 1150 545 / 545 Balance -83 / -83 409 / 409 155 / 155 Weight 99.9 kg Consult Discharge Plan - Plan Referrals: Raina Choi ENTRY LEVEL ASSISTANT MANAGER [Advanced Practice Nurse] - 02/13/17 3:00 pm - Attending Attestation I examined this patient and my medical decision-making was reviewed with the Resident Physician. I agree with the documented findings, disposition and treatment plan as described except to the extent set forth below. We independently had [id number] contact with the patient Patient seen and examined at bedside Labs, radiology, chart personally reviewed. Neuropsych: Mild delirium although much more awake and alert today she has been agitated occasionally and overnight did have an episode of significant confusion.We will focus on voodoo of sleep-wake cycle. avoid sensory deprivation, and avoid EXCELLENCE COACH depressant medications as able.. Pulm: Acute hypoxic respiratory failure which is likely secondary to cardiogenic pulmonary edema. We will continue positive airway pressure support for cardiogenic pulmonary edema as needed. ABG yesterday was reassuring that she is not retaining CO2 remains hypoxic which is corrected with positive airway pressure support Cards: NSTEMI with decompensated heart failure was reduced ejection fraction complicated by atrial fibrillation with rapid ventricular response (rate much better controlled today while on amiodarone. continue ACS protocol cardiology following plan for left heart catheter when more stable. FEN-GI: Okay for intermittent sips of fluid for now would avoid large meals because of requirement of positive airway pressure she has radiographic evidence mild sigmoid colitis but continues to have a benign abdominal examination. She is being treated with Flagyl GI panel pending Renal: Worsening acute on chronic kidney injury which is multifactorial including sepsis, vascular congestion and hypotension continue renal protective strategy. Would continue to favor cautiously continuing diuresis at this time to improve cardiac rocket motor mechanic as above renal dose all medications. ID: Severe sepsis secondary to gram-positive bacteremia final speciation pending (repeat cultures today) this is also likely complicated by mild colitis she is on vancomycin and Flagyl for this reason I would stop Cipro (and add ceftriaxone for gram negative coverage) aher advanced age this could have EXCELLENCE COACH alterations. She has a history of urinary tract infections in the past although no clear evidence of urinary tract infection Heme/Onc: She is receiving ACS protocol heparin H&H and platelets are stable continue to monitor this Endo: Glucose Monitored Integ/MSK: Skin Care per routine ICU Nursing Protocol to prevent ulcers. Lines: Peripheral IVs Dispo: Okay for discharge back to stepdown unit if patient and family decided against intubation CODE:DNAR/DNI. Patient and family may pursue more palliative measures family meeting plan today I will also consult palliative care service for goals of care discussion. <Gabe Miller - Last Filed: 02/09/17 12:16> Date of Encounter: 02/09/17 Time of Encounter: 07:04 Assessment and Plan (1) Cardiomyopathy Current Visit: Yes Status: Acute The patient had an ejection fraction of 35% on most recent echocardiogram. Cardiology is following this patient and feels that the heart heart failure component seems to be better this morning. Patient has a history of atrial fibrillation is on an amiodarone drip. Lopressor 12.5 twice a day he has been added to this patient. (2) NSTEMI (non-ST elevated myocardial infarction) Current Visit: Yes Status: Acute Patient presented to the emergency department with abdominal pain. Patient had an N STEMI. Most recent troponin was 10.56. Cardiology has been consult on this patient and is following this patient. Patient is currently receiving an IV heparin drip via the low-dose acute coronary syndrome protocol. We have added on Lopressor 12.5 twice a day. Patient is currently receiving amiodarone drip for her atrial fibrillation. Patient denies any chest pain. Cardiology may perform catheterization once the patient seems to be stable and they are comfortable performing the procedure. (3) Severe sepsis Current Visit: Yes Status: Acute On 02/05/17 the patient had a limited lactic acid level at 2.8. On 02/08/17 the patient had blood cultures positive for gram-positive cocci. The patient is currently being treated with vancomycin, Rocephin, Flagyl at this time. (4) Diarrhea Current Visit: Yes Status: Resolved Patient has had some diarrhea and a GI panel has been ordered. Results of this have not been obtained. C. difficile is negative. Qualifiers: Diarrhea type: unspecified type Qualified Code(s): R19.7 - Diarrhea, unspecified (5) Hypomagnesemia Current Visit: Yes Status: Acute Patient's magnesium is currently 2.0 and is on electrolyte protocol. (6) Hypophosphatemia Current Visit: Yes Status: Resolved Patient's phosphorus is currently 2.9. Patient is currently on electrolyte protocol. (7) Diabetes mellitus Current Visit: Yes Status: Chronic Patient has history of diabetes. She is currently on basal Levemir at night as well as medium corrective dose of insulin before meals and at bedtime. Most recent glucose level was 167. Qualifiers: Diabetes mellitus type: type 2 Diabetes mellitus complication status: with neurologic complications Diabetes mellitus complication detail: with polyneuropathy Diabetes mellitus terminal gauger insulin use: without terminal gauger use Qualified Code(s): E11.42 - Type 2 diabetes mellitus with diabetic polyneuropathy (8) Afib Current Visit: Yes Status: Acute Patient has a history of atrial fibrillation. Patient is currently on an amiodarone drip. Cardiology has been consult and is following this patient. Qualifiers: Atrial fibrillation type: paroxysmal Qualified Code(s): I48.0 - Paroxysmal atrial fibrillation (9) Anxiety Current Visit: Yes Status: Acute Patient had been given Precedex but this has been shut off and discontinued. Nursing states that she had not been requiring it (10) DVT prophylaxis Current Visit: Yes Status: Acute Patient is currently on heparin drip via the ACS protocol Subjective Principal diagnosis: Sepsis, NSTEMI Interval history: Patient was awake and alert when talking to her this morning. So she is feeling she stated that she was feeling "blah" she did not have any specific complaints but is not feeling very well. Patient denies having any chest pain at this time. Objective PUL Vital signs: Last Vital Signs Temp 99.7 F H 02/09/17 04:00 Pulse 108 02/09/17 06:00 Resp 16 02/09/17 06:00 BP 100/69 02/09/17 06:00 Pulse Ox 99 08/27/17 06:00 General appearance: no acute distress Eyes: nonicteric ENT: oropharynx dry Neck: supple Effort: normal Auscultation: bilateral: clear Cardiovascular: other (Regular but tachycardic) Gastrointestinal: hypoactive bowel sounds Integumentary: normal Extremities: no cyanosis Musculoskeletal: no deformities normal mental status, non-focal exam mood appropriate, affect normal, other (Patient appeared to be tired) Results - Laboratory Findings CBC and BMP: 02/09/17 03:45 02/09/17 09:03 ABG ABG pH 7.47 pH Units (7.32-7.45) H 02/08/17 11:43 ABG pCO2 40 mmHg (35-45) 02/08/17 11:43 ABG pO2 77 mmHg (85-104) L 02/08/17 11:43 ABG O2 Saturation 96 % (95-98) 02/08/17 11:43 PT/INR, D-dimer PT 12.5 Seconds (9.4-12.1) H 02/05/17 13:35 Abnormal lab findings: Abnormal lab results WBC 12.2 K/mcL (4.3-11.1) H 02/09/17 03:45 RBC 3.01 M/mcL (3.82-4.97) L 02/09/17 03:45 Hgb 9.3 g/dL (11.5-15.4) L 02/09/17 03:45 Hct 28.0 % (35.3-44.9) L 02/09/17 03:45 Neutrophils # 9.0 K/mcL (1.6-8.9) H 02/09/17 03:45 Hyposegmented Neuts Present (Not Present) A 02/05/17 06:05 Reactive Lymphocytes Present (Not Present) A 02/05/17 06:05 Toxic Granulation Present (Not Present) A 02/05/17 06:05 Toxic Vacuolation Present (Not Present) A 02/05/17 06:05 PT 12.5 Seconds (9.4-12.1) H 02/05/17 13:35 APTT 83.4 Seconds (26.0-36.0) H D 02/09/17 03:45 Heparin Anti-Xa, Unfract 1.06 IU/mL (0.30-0.70) H* 02/05/17 22:31 ABG pH 7.47 pH Units (7.32-7.45) H 02/08/17 11:43 ABG pO2 77 mmHg (85-104) L 02/08/17 11:43 ABG HCO3 29.1 mEQ/L (21-27) H 02/08/17 11:43 ABG Total CO2 30.3 mEq/L (20-26) H 02/08/17 11:43 ABG Base Excess 5.0 mEq/L (-2.0 to 3.0) H 02/08/17 11:43 Potassium 3.3 mEq/L (3.5-4.5) L 02/09/17 03:45 BUN 44 mg/dL (7-20) H 02/09/17 03:45 Creatinine 2.10 mg/dL (0.57-1.11) H 02/09/17 03:45 Est GFR ( Amer) 27 (> 60) L 02/09/17 03:45 Est GFR (Non-Af Amer) 22 (> 60) L 02/09/17 03:45 Glucose 167 mg/dL (70-99) H 02/09/17 03:45 POC Glucose 168 (58-89) H 02/08/17 19:08 Calcium 8.0 mg/dL (8.6-10.8) L 02/09/17 03:45 Ionized Calcium 1.02 mmol/L (1.15-1.35) L 02/09/17 03:45 Magnesium 1.5 mg/dL (1.6-2.6) L 02/09/17 03:45 AST 53 Units/L (5-34) H 02/09/17 03:45 Troponin I 10.56 ng/mL (0-0.03) H* 02/05/17 18:14 B-Natriuretic Peptide 306 pg/mL (0-100) H 02/05/17 06:05 Serum Total Protein 5.6 g/dL (6.0-8.3) L 02/09/17 03:45 Albumin 2.2 g/dL (3.5-5.0) L 02/09/17 03:45 Albumin/Globulin Ratio 0.6 (1.1-2.2) L 02/09/17 03:45 Urine Clarity Cloudy (Clear) A 02/05/17 05:05 Urine Protein 30 mg/dL (Neg-Trace) H 02/05/17 05:05 Urine Microscopic RBC 3-5 per hpf (0-3) H 02/05/17 05:05 Ur Squamous Epith Cells Many per lpf (None-Few) H 02/05/17 05:05 Urine Bacteria Many per hpf (None-Few) H 02/05/17 05:05 - Clinical Findings Intake & Output: Intake & Output 02/08/17 02/08/17 02/09/17 15:59 23:59 07:59 Intake Total 1067 / 1067 409 / 409 700 / 700 Output Total 1150 / 1150 545 / 545 Balance -83 / -83 409 / 409 155 / 155 Weight 99.9 kg
[2017-02-09] MEDS ORDERED: BuPROPion SR (12 HR) 100 MG TABLET PO SCH (09:00)
[2017-02-09] MEDS ORDERED: Cholecalciferol (D-3) 1,000 UNIT TABLET PO SCH (09:00)
[2017-02-09] MEDS ORDERED: BIOFREEZE TP PRN (09:00)
[2017-02-09] MEDS ORDERED: Aspirin Enteric Coated 81 MG Tablet PO SCH (09:00)
--- NOTE | 2017-02-09 09:35 | Cardiology Progress Note ---
Date of Encounter: 02/09/17 Time of Encounter: 09:33 Assessment and Plan (1) NSTEMI (non-ST elevated myocardial infarction) Current Visit: Yes Status: Acute Findings c/w NSTEMI. LV function not well seen per TTE report. Personally reviewed images, LVEF appears to be about 35%. Possible infectious issue being managed by IM/ICU. Clinically, heart failure seems better this morning. Recommend continue ACS therapy - aspirin/Plavix, Heparin drip, statin. Agree with low dose BB - if tolerates, change to long acting Toprol XL given reduced EF. Overall, she appears to be improved today. Family and patient have been considering LHC for several days now. We discussed possibly performing today as this appears to be our window of opportunity. They understand the risks of procedure, including heart attack, arrhythmia, stroke, , worsening respiratory condition requiring mechanical support, worsening kidney function. All would like to proceed. Given her advanced age and multiple organ systems involved, her prognosis is guarded. (2) Cardiomyopathy Current Visit: Yes Status: Acute Qualifiers: Cardiomyopathy type: unspecified Qualified Code(s): I42.9 - Cardiomyopathy , unspecified (3) Left bundle branch block Current Visit: Yes Status: Acute (4) Afib Current Visit: Yes Status: Acute AF with RVR. HR improved with amiodarone, but remains 100s-110s. Continue amiodarone - will changed to PO when loading complete. Agree with low dose BB. Continue heparin drip. residential AC to be decided after potential LHC. Qualifiers: Atrial fibrillation type: paroxysmal Qualified Code(s): I48.0 - Paroxysmal atrial fibrillation (5) HERMINIA (acute kidney injury) Current Visit: Yes Status: Acute A/CKD in setting of ACS, relative hypotension with likely ATN, and worsened by diuresis. Discussion w patient/family: The assessment and plan as outlined above was discussed with the patient and/or family members who expressed understanding and agreement. All questions were answered. Thank you for involving us in the care of your patient. Please call with any questions. Subjective Principal diagnosis: Sepsis, NSTEMI Interval history: Patient seen and examined. Now on nasal cannula. Overall, ICU staff reports she is doing better. Hemodynamics stable overall - tachycardia better, BP improved. Diuresis continued with dilute urine. Able to rest supine without dyspnea/orthopnea. Objective Vital Signs, Last 4 Hours Temp Pulse Resp BP Pulse Ox 02/09/17 07:40 26 105/71 99 02/09/17 07:36 99.2 F 112 15 105/71 99 02/09/17 07:00 112 12 99/71 100 02/09/17 06:00 108 16 100/69 99 General: Conversant, No Apparent Distress, Other (Sleepy this morning. ) HEENT: Atraumatic, Normocephaly, Mucus Membranes Moist Neck: No JVD, Normal carotid pulses Cardiac: Other (Irregular rate and rhythm) Lungs: Other (Shallow bilaterally) Neuro: Alert and responsive, No focal deficits noted Abdomen: Soft, Non-Tender Skin: No rashes noted on visualized skin Musculoskeletal: No Chest Wall Tenderness Extremities: No Clubbing, No Cyanosis, No Edema Results 02/09/17 03:45 02/09/17 03:45 Lab Results 02/08/17 02/08/17 02/08/17 11:35 11:35 19:40 WBC Hgb Hct Plt Count APTT 61.9 H 51.5 H Sodium 139 Potassium 2.9 L Chloride 101 Carbon Dioxide 26 BUN 43 H Creatinine 2.09 H Glucose 196 H Calcium 8.3 L Magnesium Total Bilirubin AST ALT Alkaline Phosphatase 02/08/17 02/09/17 02/09/17 19:40 03:45 03:45 WBC 12.2 H Hgb 9.3 L Hct 28.0 L Plt Count 174 APTT Sodium 136 Potassium 3.0 L 3.3 L Chloride 100 Carbon Dioxide 26 BUN 44 H Creatinine 2.10 H Glucose 167 H Calcium 8.0 L Magnesium 1.5 L Total Bilirubin 0.5 AST 53 H ALT 32 Alkaline Phosphatase 51 02/09/17 02/09/17 03:45 09:03 WBC Hgb Hct Plt Count APTT 83.4 H D 61.3 H Sodium Potassium Chloride Carbon Dioxide BUN Creatinine Glucose Calcium Magnesium Total Bilirubin AST ALT Alkaline Phosphatase - Imaging and Cardiology Echo: report reviewed - EKG Interpretation EKG results cardiology: personally reviewed Consult Discharge Plan - Plan Referrals: Raina Choi WILDLIFE ECOLOGY PROFESSOR [Advanced Practice Nurse] - 02/13/17 3:00 pm
[2017-02-09] MEDS: Insulin LISPRO 300 UNITS/3 ML VIAL SQ SCH ×2 (09:45→15:18)
[2017-02-09 10:22] LABS: Ionized Calcium 1.04 mmol/L (1.15-1.35)
[2017-02-09 10:31] LABS: Phosphorous 2.9 mg/dL (2.3-4.7); Potassium 3.9 mEq/L (3.5-4.5)
[2017-02-09] MEDS ORDERED: Nitroglycerin 1,000 MCG/10 ML VIAL IV ONE (11:26)
[2017-02-09] MEDS ORDERED: 0.9 % Sodium Chloride 1,000 ML ONE ×3 (11:26→13:06)
[2017-02-09] MEDS ORDERED: *HR* Heparin 10,000 UNIT/10 ML VIAL ONE (11:26)
[2017-02-09] MEDS ORDERED: Verapamil 5 MG/2 ML VIAL ONE (11:26)
[2017-02-09] MEDS ORDERED: Heparin 1,000 UNITS/500 mL NS 500 ML ONE ×2 (11:26→12:45)
[2017-02-09] MEDS ORDERED: *HR* FentaNYL (PF) 250 MCG/5 ML VIAL ONE (11:58)
[2017-02-09] MEDS ORDERED: *HR* Midazolam HCl 5 MG/5 ML VIAL IVP ONE (11:58)
--- NOTE | 2017-02-09 12:13 | Pre-Sedation Evaluation ---
Pre-sedation evaluation - Pre-sedation checklist Date of procedure: 02/09/17 Procedure: cardiac cath +/- PCI Recent Vitals: Last Vital Signs Temp 99.2 F 02/09/17 08:00 Pulse 125 02/09/17 11:00 Resp 20 02/09/17 11:00 BP 124/79 02/09/17 11:00 Pulse Ox 96 02/09/17 11:00 H&P (including ROS) documented in medical record: Yes Previous reaction to sedatives/anesthetics: No Dietary Status: NPO after Midnight Airway Assessment: Patient can open mouth completely, TMJ function normal Dentition: No loose teeth or bridges Possible difficult airway: No Plan of Care: Pt appropriate candidate for procedure/moderate/conscious sedation , Risks/benefits of procedure/sedation discussed w/ patient/family
--- NOTE | 2017-02-09 13:12 | Procedure Note ---
Date of procedure: 02/09/17 Pre-op diagnosis: NSTEMI, acute systolic CHF, AFib, tachycardia Post-op diagnosis: same Procedure: Procedures: Left heart catheterization Right heart catheterization [place]Carl[place] catheter placement via right femoral vein Selective coronary arteriography Cardiac catheterization for coronary anatomy Placement of intra-artic balloon pump via right common femoral artery Sheath placement right common femoral artery under fluoroscopic guidance Sheath placement of right femoral vein Indication: Non-ST elevation microinfarction Acute coronary syndrome Acute systolic congestive heart failure Hypoxia Respiratory failure Tachycardia Atrial fibrillation Acute on chronic renal failure Coronary artery disease Left main: No significant disease Left anterior descending: Proximal 99% stenosis, mid 60% stenosis, diagonal branch with proximal 50% stenosis. The proximal and mid LAD are calcified, there is also calcification in the diagonal branch Ramus intermedius branch: 95% ostial stenosis, 95% proximal stenosis, 70% mid vessel stenosis. Circumflex artery: Obtuse marginal branch with 95% proximal stenosis Right coronary artery: Dominant. 40% mid vessel stenosis. 30% stenosis in the posterior descending artery. Left ventricular gram not performed to conserve on contrast totals Intra-aortic balloon pump placed via right common femoral artery, activated with one-to-one counterpulsation [place] catheter placed a right femoral vein, will remain in place for further hemodynamic monitoring Patient tolerated the procedure well. No complications Total contrast: 9.4 ml Isovue 370 Impression: 1. Severe multivessel coronary artery disease 2. Acute on chronic systolic congestive heart failure 3. Elevated right heart filling pressures 4. NSTEMI 5. Acute coronary syndrome 5. Acute on chronic renal failure 6. Successful placement of IABP via right common femoral artery 7. Decompensated congestive heart failure 8. Atrial fibrillation 9. Tachycardia 10. Hypoxia 11. Elevated troponin level Plan: Reviewed films and discuss case with Dr. Mccoy. Dr Mccoy will be transferring the patient to a tertiary care caenter ([facility]) for further management with consideration for coronary artery bypass grafting surgery or multivessel percutaneous intervention ([facility] case). Intra-balloon pump was placed for hemodynamic support. [place] catheter placed for further and ongoing hemodynamic monitoring. We did minimize contrast utilization using only 9.4 mL's contrast (acute on chronic renal failure). Patient transferred back to the ICU in stable condition. Anesthesia: local, IV sedation Surgeon: Leonel Pinto Pathology: none sent Condition: critical Disposition: ICU
--- NOTE | 2017-02-09 14:16 | Discharge Summary ---
Date of Encounter: 02/09/17 Time of Encounter: 14:14 - Discharge Diagnosis (1) Cardiomyopathy Priority: Primary Status: Acute Qualifiers: Cardiomyopathy type: ischemic Qualified Code(s): I25.5 - Ischemic cardiomyopathy (2) NSTEMI (non-ST elevated myocardial infarction) Priority: Primary Status: Acute (3) Afib Priority: Primary Status: Acute Qualifiers: Atrial fibrillation type: paroxysmal Qualified Code(s): I48.0 - Paroxysmal atrial fibrillation (4) Severe sepsis Priority: Primary Status: Acute (5) Diarrhea Priority: Primary Status: Resolved Qualifiers: Diarrhea type: unspecified type Qualified Code(s): R19.7 - Diarrhea, unspecified (6) Hypophosphatemia Priority: Primary Status: Resolved (7) Diabetes mellitus Priority: Secondary Status: Chronic Qualifiers: Diabetes mellitus type: type 2 Diabetes mellitus complication status: with neurologic complications Diabetes mellitus complication detail: with polyneuropathy Diabetes mellitus [facility] insulin use: without petroleum terminal plant operator use Qualified Code(s): E11.42 - Type 2 diabetes mellitus with diabetic polyneuropathy (8) CKD (chronic kidney disease) Priority: Secondary Status: Chronic Qualifiers: Chronic kidney disease stage: stage 4 (severe) Qualified Code(s): N18.4 - Chronic kidney disease, stage 4 (severe) (9) Hypomagnesemia Priority: Primary Status: Acute (10) HTN (hypertension) Priority: Secondary Status: Chronic Qualifiers: Hypertension type: essential hypertension Qualified Code(s): I10 - Essential (primary) hypertension (11) Anxiety Priority: Primary Status: Acute (12) PAD (peripheral artery disease) Priority: Secondary Status: Chronic (13) CAD (coronary artery disease) Priority: Primary Status: Chronic Qualifiers: Coronary Disease-Associated Artery/Lesion type: [place] artery [place] vs. transplanted heart: [place] heart Associated angina: without angina Qualified Code(s): I25.10 - Atherosclerotic heart disease of [place] coronary artery without angina pectoris - Discharge Medications Home Medications: Aspirin [Adult Low Dose Aspirin EC] 81 mg PO DAILY 08/23/15 [History] Biotin 5 mg PO DAILY 08/23/15 [History] BuPROPion SR (12 HR) [Wellbutrin SR] 100 mg PO DAILY 08/23/15 [History] Cholecalciferol (Vitamin D3) [Vitamin D3] 5,000 unit PO DAILY 08/23/15 [History] Glimepiride [Amaryl] 4 mg PO DAILY 08/23/15 [History] Insulin Glargine,Hum.rec.anlog [Lantus Solostar] 26 unit SQ HS 08/23/15 [History ] Losartan Potassium [Cozaar] 100 mg PO DAILY 08/23/15 [History] Metoprolol [Lopressor] 50 mg PO BID 08/23/15 [History] Promethazine [Phenergan] 12.5 mg PO Q6HR 08/23/15 [History] Zolpidem [Ambien] 5 mg PO HS 08/23/15 [History] amLODIPine [Norvasc] 10 mg PO DAILY 08/23/15 [History] Meclizine HCl [Bonine] 25 mg PO TID PRN #10 tab.chew 10/14/16 [Rx] HYDROcodone/Acet 7.5/325 mg [[address] 7.5-325 mg] 1 tab PO Q4H PRN 02/05/17 [ History] Allergies/Adverse Reactions: 3 Allergy/AdvReac Type Severity Reaction Status Date / Time Penicillins Allergy See Verified 02/05/17 05:56 Comments pregabalin [From Lyrica] Allergy See Verified 02/05/17 05:56 Comments Procedures/tests Complete & Pending: Procedures Performed prior 72 hours Category Date Time Status Left Heart Cath [CL Cardiac Catheterization] [CL] Switch Cleaner 02/09/17 11:04 Ordered Routine Date of admission: 02/05/17 11:42 Primary care physician: Leonel Ulloa MD Consults: 02/05/17 12:41 Consult to Cardiology [CONS] Routine Comment: Consulting Provider: Brenda Victor Reason for Consult: elevated trop 3.82 Time Notified: 12:42 Call Completed: Yes 02/05/17 12:45 Consult to Cardiology [CONS] Stat Comment: Consulting Provider: Brenda Victor Reason for Consult: NSTEMI Call Completed: Yes 02/07/17 07:51 Consult to Cardiac Rehabilitation-Phase1 [CONS] Routine Comment: Reason for Consult: NSTEMI Call Completed: No 02/07/17 10:21 Consult to PICC team [Consult to Invasive Line Access Team] [CONS] Routine Reason for Consult: Limited access Line Type: EPIV PICC line indications: Limited vascular access Time Notified: 10:21 Call Completed: Yes 02/07/17 15:37 Consult to Infectious Diseases [CONS] Routine Consulting Provider: [facility] Reason for Consult: Unexplained fever, leukocytosis; NSTEMI, new onset a.fib and CHF Call Completed: Yes 02/08/17 09:41 Consult to Pulmonology [CONS] Routine Consulting Provider: [facility] Reason for Consult: Acute respiratory failure, ACS, Cardiomyopathy, sepsis Call Completed: Yes Discharging clinician: Katty Britton Anticipated date of discharge: 02/09/17 - Patient Status Disposition: Transfer Other Condition: Fair Functional capacity at discharge: bed bound Overall status at discharge: patient is not back to baseline - Discharge Instructions Follow Up With: Raina Choi CASE AIDE [Advanced Practice Nurse] - 02/13/17 3:00 pm Hospital course: Ms. Syed is a 82 year old female with the above medical problems who was initially admitted with abdominal pain and diarrhea. She was also noted to have low-grade fever and leukocytosis. Chest x-ray showed no infiltrates and urinalysis was not suggestive of UTI. CT abdomen/pelvis done in the emergency room showed nonspecific changes suggestive of possible sigmoid colitis/ appendagitis. She was empirically started on IV ciprofloxacin and Flagyl along with IV hydration for possible sepsis. She was placed on telemetry monitoring and was noted to have elevated troponin, which continue to trend up to 10.56. Cardiology was consulted and she was started on ACS protocol with IV heparin drip, aspirin, beta gunnar and statin. She was noted to have episodes of anxiety and hypoxic respiratory failure and was treated with noninvasive positive pressure ventilation with BiPAP support. Echocardiogram was done which showed severely decreased ejection fraction around 35% with possible ischemic cardiomyopathy. Cardiology recommended ischemia evaluation with left heart catheterization, which was delayed due to patient's unstable medical condition. Patient also developed new onset atrial fibrillation with rapid ventricular rate , was started on IV Cardizem drip initially, changed later to IV amiodarone drip due to hypotension and low ejection fraction. She was also noted to have cardiogenic pulmonary edema and was started on aggressive diuresis with IV Lasix , however noted to have inadequate urine output. She was transferred to ICU for higher level of care at this point. Patient underwent left heart catheterization today which revealed significant multivessel coronary artery disease and cardiology recommends transfer to tertiary care center for high risk PCI versus CABG. She has also been started on intra-aortic balloon pump at this time to maintain intravascular pressures. Her heart rate is in appropriate controlled at this time on IV amiodarone drip. Case has been discussed by numerical control machine tool operator Dr. Mccoy with cardiothoracic surgeon Dr.Juan Ellis at [facility] and patient has been accepted for higher level of cardiac care at this time. Patient's clinical condition has been constantly discussed with multiple family members including power of tableau developer, Maximino and her daughters and sons. CODE STATUS has been explained in great detail and at this time they would like the patient to remain full code, pending evaluation and management by cardiothoracic surgeon. - Time Spent with Patient Total time spent providing and/or coordinating discharge services: Greater than 30 minutes (45 min) - Constitutional Vitals: Temp Pulse Resp BP Pulse Ox 99.3 F 132 20 119/80 93 02/09/17 13:45 02/09/17 13:45 02/09/17 13:45 02/09/17 13:45 02/09/17 13:45 General appearance: Present: A&O X 1, obese, answers questions appropriately - Respiratory Respiratory exam: Absent: accessory muscle use, rales, rhonchi, wheezes - Cardiovascular Cardiovascular exam: Present: RRR, +S1, +S2, tachycardia. Absent: diastolic murmur, gallop, rubs, systolic murmur
[2017-02-09 15:15] VITALS: BP 106/59
[2017-02-09] MEDS: Heparin 25,000 UNIT/500 ML D5W 25,000 UNIT/500 ML MLS IVC SCH (15:54)
[2017-02-09] MEDS ORDERED: Aminoglycoside Consult 1 EACH MC ONE (16:42)
--- NOTE | 2017-02-10 08:37 | Invasive Diagnostic Lab Proc ---
Name: Sherice Syed Date of Study: 02/09/2017 Date: 1935 Ht: 64.2in Medical Record#: [id number] Age: 82 Wt: 220.46lb Gender: Female BSA: 2.04 Order #: [id number] BMI: 37.64 Physicians Procedure Physician: Leonel Pinto MD Referring MD: Leonel Ulloa MD Referring MD: Staff Name Position Time In [place]us Victoria RT (R) Monitor 12:16 PM Arjun Cody RN Supervisor Drying And Winding 12:16 PM Violet Davis RT Scrub 12:16 PM Indications Indication Non-Stemi Procedures Performed Procedure R&L HRT ART/VENTRICLE ANGIO IABP INSERTION, PERCUTANEOUS Pre-Procedure Checklist Informed consent is complete signed and on chart. H&P is on chart. ID band is on and ID verified with patient. Patient NPO for procedure The procedure was described for the patient and questions were answered. Blood Pressure: 105/71 ECG is on chart. Rhythm: Atrial Fibrillation Plan of Care Patient will tolerate the procedure without complications. Adequate level of comfort will be maintained. Hemodynamics will remain stable Patient will recover from procedure without complications. Respiratory function will be maintained. Cardiac rhythm will remain stable. Patient temperature will be maintained. Patient and/or family have verbalized understanding of the procedure. Patient Education Intravenous Access Time IV Size Location DC'd Fluid/Drip Rate Units RN 11:19 AM 20g 1 1/4" Patent On Arrival Lt Wrist 0.9NaCl 25 ml/hr Arjun Cody RN 11:19 AM EPIV L cephalic vein Amiodarone 0.5 mg/min Arjun Cody RN Allergies pregabalin PCN, CODEINE,ZOSYN Vital Signs Time BP (mmHg) HR (bpm) O2 Sat. RR (bpm) LOC 11:20 AM 112 99 % 26 5 = Fully awake and oriented or at pre-proc level 12:17 PM / % 5 = Fully awake and oriented or at pre-proc level 12:17 PM / % 5 = Fully awake and oriented or at pre-proc level 12:32 PM / % 5 = Fully awake and oriented or at pre-proc level 12:48 PM / % 5 = Fully awake and oriented or at pre-proc level 11:46 AM 100 / 79 129 94 % 11:52 AM 105 / 78 123 100 % 11:56 AM 103 / 67 117 99 % 12:01 PM 105 / 76 126 100 % 12:15 PM 126 / 65 133 100 % 23 12:19 PM 120 / 75 124 100 % 16 12:24 PM 117 / 70 129 100 % 18 12:29 PM 101 / 68 129 100 % 33 12:34 PM 104 / 76 113 100 % 18 12:40 PM 103 / 75 126 100 % 22 12:44 PM 104 / 71 120 100 % 25 12:49 PM 107 / 47 117 100 % 18 12:54 PM 96 / 66 120 100 % 17 01:00 PM 106 / 72 129 100 % 18 01:04 PM 105 / 52 121 100 % 18 01:09 PM 106 / 66 136 100 % 18 Procedural Medications Time Medication Dose Units Method Given By 12:17 PM Oxygen 100 % BiPAP Arjun Cody RN 12:21 PM Lidocaine 2% 20 ml Subcutaneous Leonel Pinto MD ASA Classification: CLASS IV- Severe systemic that is constant threat to patient's life John Score Preprocedure Postprocedure Activity 2- Moves 4 extremities sustained head lift Activity 2- Moves 4 extremities sustained head lift Circulation 2- SBP +/= 20 points of pre-anesthetic level Circulation 2- SBP +/= 20 points of pre-anesthetic level Consciousness 2- Awake and alert oriented x 3 Consciousness 2- Awake and alert oriented x 3 O2 Saturation 1- Needs O2 inhalation to maintain O2 saturation of 90% O2 Saturation 1- Needs O2 inhalation to maintain O2 saturation of 90% Respiratory 2- Able to deep breathe and cough well Respiratory 2- Able to deep breathe and cough well Total Score 9 Total Score 9 Contrast Agent: Isovue Diagnostic Contrast: 9 ml Total Contrast: 9 ml Fluoro Dose: 352 mGy Procedure Log Time Note Enter By 11:29 AM CathStat 11:44 AM Pt arrived to parking lot laborer 2 at 11:43 twilson 11:44 AM Physician arrived 11:44 twilson 11:44 AM Meet and grekatherin completed twilson 11:44 AM Sign in performed according to hospital policy. twilson 11:44 AM Procedure start 11:44 twilson 11:46 AM Vitals capture started with the following parameters, Patient=Adult, Interval=5 min, Initial Smodwxwf=145 mmHg, Deflation Rate=5 mmHg, Cuff placed on Right Arm 11:46 AM AV=603 bpm, LKBJ=654/79 mmhg, SpO2=94.0 %, Comment=afib 11:52 AM ST=488 bpm, HZFZ=600/78 mmhg, TkV1=400.0 %, Comment=afib 11:56 AM YA=337 bpm, HRRH=891/67 mmhg, SpO2=99.0 %, Comment=afib 12:01 PM XZ=776 bpm, EWTO=252/76 mmhg, PpL1=429.0 %, Comment=afib 12:13 PM Vitals capture started with the following parameters, Patient=Adult, Interval=5 min, Initial Lgykvkza=451 mmHg, Deflation Rate=5 mmHg, Cuff placed on Right Arm 12:15 PM AL=327 bpm, TCAR=233/65 mmhg, PsD2=552.0 %, Resp=23 B/min 12:16 PM Lexus Victoria RT (R) Position: Monitor Time in: 12:16 twilson 12:16 PM Arjun Cody RN Position: Supervisor Drying And Winding Time in: 12:16 twilson 12:16 PM Violet Davis RT Position: Scrub Time in: 12:16 twilson 12:16 PM Patient charges- Angio tray pack, Navilyst 3mm J, Pulse Oximetry and ACIST tubing and transducer twilson 12:16 PM Case Delayed no twilson 12:17 PM Hair removed from procedure site in procedure lab using clippers. Bilateral groin prepped with Chloraprep by Lexus Victoria (R), safety strap applied then patient was draped. Skin intact. twilson 12:17 PM Time: 12:17 Patient comfortable and pain free: Yes twilson 12:17 PM Time: 12:17LOC: 5 = Fully awake and oriented or at pre-proc level twilson 12:17 PM Time: 12:17 Oxygen on at 100 % per BiPAP by Arjun Cody RN twilson 12:19 PM OH=223 bpm, QEDH=062/75 mmhg, QmH8=248.0 %, Resp=16 B/min 12:20 PM Recorded ECG: TI=696 Condition=Condition 1 12:21 PM Time out performed according to hospital policy twilson 12: PM Time: 12:21 20 ml Lidocaine 2% to right groin Subcutaneous Given by Leonel Pinto MD twilson 12:21 PM Access obtained by percutaneous puncture. 5Fr 10cm Terumo [place] sheath placed in right Femoral artery. [id number] twilson 12:21 PM 5Fr FL 4 catheter inserted over the wire DN twilson 12:22 PM Wire removed twilson 12:23 PM Recorded Pressure: Ao, WZ=510, Condition=Condition 1 (Aorta) Ao 96/78/86 12:23 PM LCA angiography performed in multiple views. twilson 12:23 PM Wire reinserted. twilson 12:23 PM Catheter removed twilson 12:24 PM 5Fr FR 4 catheter inserted over the wire [facility] twilson 12:24 PM KG=627 bpm, BJXX=582/70 mmhg, CpL5=072.0 %, Resp=18 B/min 12:25 PM Pressure channel 3 zeroed. 12:25 PM Wire removed, intact twilson 12:26 PM Recorded Pressure: LV, JC=679, Condition=Condition 1 (Left Ventricle) LV 107/15/28 12:26 PM Recorded Pressure: LV, Ao, HO=439, Condition=Condition 1 (Left Ventricle) LV 69/-21/10, (Aorta) Ao 87/62/72 12:26 PM Recorded Pressure: Ao, IN=873, Condition=Condition 1 (Aorta) Ao 85/64/73 12:26 PM Catheter selectively placed in left ventricle twilson 12:26 PM Pressures recorded. twilson 12:27 PM RCA angiography performed in multiple views. twilson 12:27 PM Wire reinserted. twilson 12:27 PM Catheter removed, intact. twilson 12:29 PM WL=710 bpm, COYZ=706/68 mmhg, AfB3=289.0 %, Resp=33 B/min 12:29 PM Preparing for balloon pump insertion. twilson 12:30 PM Preparing for swan catheter insertion. twilson 12:32 PM Time: 12:17LOC: 5 = Fully awake and oriented or at pre-proc level twilson 12:32 PM Time: 12:17 Patient comfortable and pain free: Yes twilson 12:34 PM WT=425 bpm, YUUZ=237/76 mmhg, TfJ4=323.0 %, Resp=18 B/min, Comment=afib 12:35 PM Access obtained by percutaneous puncture. 9Fr 10cm PSI Kit sheath placed in right Femoral vein. [id number] twilson 12:38 PM 7 F [employer] [place] "S" tip inserted through venous sheath twilson 12:40 PM PE=452 bpm, BRSO=593/75 mmhg, WnA1=581.0 %, Resp=22 B/min, Comment=afib 12:40 PM Pressure channel 3 zeroed. 12:41 PM Recorded Pressure: MPA, LQ=975, Condition=Condition 1 (Main Pulmonary Artery) MPA 12:41 PM Recorded Pressure: PCW, RY=872, Condition=Condition 1 (Pulmonary Capillary Wedge) PCW 12:42 PM Recorded Pressure: RA, WP=927, Condition=Condition 1 (Right Atrium) RA 12:43 PM [place] catheter properly placed at 73 centimenters. twilson 12:44 PM UF=099 bpm, HGFM=969/71 mmhg, CyT6=174.0 %, Resp=25 B/min, Comment=afib 12:48 PM Time: 12:32 Patient comfortable and pain free: Yes twilson 12:48 PM Time: 12:32LOC: 5 = Fully awake and oriented or at pre-proc level twilson 12:49 PM Preparing for balloon pump placement. twilson 12:49 PM BD=391 bpm, XLWG=006/47 mmhg, DvK9=979.0 %, Resp=18 B/min, Comment=afib 12:49 PM Family updated by Dr. Mccoy. twilson 12:49 PM Plan to transfer patient from ICU to [facility] for CABG consult. twilson 12:52 PM 7.5 [place] Balloon Pump IABP catheter inserted into right Femoral artery, 40 cc, *ACC* catheter inserted 1 twilson 12:53 PM Coronary Dominance: right twilson 12:53 PM ASA Class CLASS IV- Severe systemic that is constant threat to patient's life twilson 12:54 PM Connecting to balloon pump twilson 12:54 PM HY=333 bpm, NIBP=96/66 mmhg, BdB5=209.0 %, Resp=17 B/min, Comment=afib 12:56 PM Hand Knitter aware of balloon pump insertion. twilson 12:57 PM IABP sheath sutured to skin twilson 12:57 PM [place] catheter sutured in place. twilson 12:57 PM Procedure completed at 12:57 twilson 12:57 PM Sign out completed: Radiation Dose 351.51 mGy Fluoro Time: 4.6 Isovue 370 - 200ml contrast 9 ml given by Lenoel Pinto MD. Complications: NoneCardiac Rehab Consult needed: NoConfirmed administered medications: Yes twilson 12:57 PM Isovue 370 - 200ml,1 Bottle(s) used. twilson 12:57 PM Arterial and Venous sheath left in place to be pulled on floor/holding areaV+Pad twilson 12:58 PM Post ECG Atrial Fibrillation twilson 12:58 PM IABP Settings: 1:1 ratio EKG trigger twilson 01:00 PM NS=364 bpm, GZAY=336/72 mmhg, FtS3=516.0 %, Resp=18 B/min, Comment=afib 01:02 PM 13:02 Post Pulses Bilateral DP & PT 1+ twilson 01:02 PM 13:02 Post Pulses Bilateral radial 2+ twilson 01:02 PM Information taught Cardiac Cath/IABP/[place] Catheter twilson 01:02 PM Education needs Procedure, Plan of Care, and Responsibilities of Patient in Care twilson 01:02 PM Learning barriers :None twilson 01:02 PM Education Methods Verbal twilson 01:02 PM Education evaluation Able to repeat information twilson 01:02 PM Site status No bleeding/hematoma - Rt Groin as reported by Violet Davis RT at 13:02 twilson 01:02 PM Opsite applied to right groin area over [place] and IABP. twilson 01:03 PM Plavix, Effient or Brilinta given No twilson 01:03 PM Delay to floor No twilson 01:03 PM Lesion found in Mid RCA. Pre Stenosis: 40 Pre ZEYAD Flow: twilson 01:03 PM Lesion found in Proximal LAD. Pre Stenosis: 99 Pre ZEYAD Flow: twilson 01:03 PM Time: 12:48LOC: 5 = Fully awake and oriented or at pre-proc level twilson 01:03 PM Time: 12:48 Patient comfortable and pain free: Yes twilson 01:04 PM Lesion found in Mid LAD. Pre Stenosis: 60 Pre ZEYAD Flow: twilson 01:04 PM Lesion found in Proximal 1st Diagonal. Pre Stenosis: 50 Pre ZEYAD Flow: twilson 01:04 PM UI=076 bpm, YSDX=678/52 mmhg, IfQ6=513.0 %, Resp=18 B/min, Comment=afib 01:04 PM Lesion found in 1st Marginal. Pre Stenosis: 95 Pre ZEYAD Flow: twilson 01:05 PM Lesion found in Right PDA. Pre Stenosis: 30 Pre ZEYAD Flow: twilson 01:05 PM Lesion found in Ostial Ramus. Pre Stenosis: 95 Pre ZEYAD Flow: twilson 01:09 PM Lesion found in Proximal Ramus. Pre Stenosis: 95 Pre ZEYAD Flow: twilson 01:09 PM Lesion found in Mid Ramus. Pre Stenosis: 70 Pre ZEYAD Flow: twilson 01:09 PM NQ=696 bpm, QWOK=227/66 mmhg, CzS6=140.0 %, Resp=18 B/min, Comment=afib 01:09 PM Proximal Left Anterior Descending Coronary Artery with 99% stenosis. If graft is supplying this territory, 0 % stenosis. twilson 01:09 PM Mid/Distal Left Anterior Descending Coronary Artery and diagonal branches with 60% stenosis. If graft is supplying this area, 0 % stenosis twilson 01:09 PM Circumflex, Obtuse Marginal, Left Posterior Descending, and Left Posterolateral Coronary Arteries with 95 % stenosis. If graft is supplying this area, 0 % stenosis twilson 01:09 PM Right Coronary, Right Posterior Descending Arteries with Right Posterolateral and Acute Marginal branches with 40 % stenosis. If graft is supplying this area, 0 % stenosis twilson 01:10 PM Ramus with 95% stenosis. If graft is supplying this area, 0 % stenosis twilson 01:10 PM Report given to Kathy BUCKLEY Pt taken to ICU Room #4. 13:10 twilson 01:11 PM Family aware of findings per Dr. Mccoy. twilson 01:16 PM Patient out of room: 13:16 twilson 01:17 PM Post Blood Pressure 106/66 twilson 01:28 PM IABP Augmented pressure, mean: 121 twilson 01:28 PM IABP Systemic BP: 91/42 twilson Complications Complication None Hemodynamics Pressures Site Systolic/A Wave Diastolic/V Wave Mean AO 96 78 86 LV 107 15 28 LV 69 -21 10 AO 87 62 72 AO 85 64 73 MPA 42 26 33 PCW 32 29 28 RA 13 13 12 Post Procedure Information Blood Pressure: 106/66 mmHg Rhythm: Atrial Fibrillation Post procedural instructions were given Site Checks Time Location Status Staff Sheath In? Note 01:02 PM Rt Groin No bleeding/hematoma Violet Davis RT Pulses Time Site Pre-Procedure Post-Procedure Note 02/09/2017 11:20:00 AM Bilateral DP 1+ 02/09/2017 11:20:00 AM Bilateral radial 2+ 1:02:00 PM Bilateral DP & PT 1+ 1:02:00 PM Bilateral radial 2+ Updated by RT Thom (R) on 02/09/2017 1:30:10 PM electronically signed on 02/09/2017 1:30:49 PM with status of Final
== END 2017-02-09 16:43 | disposition other institution (70) | DRG 853 ==
LOC: 2ANU 04:40 → EMEROO 04:40 → 2ANU 08:50 → SUATTDRO 11:42 → 2NNU 21:47 → ICNU 02-08 11:40
PROVIDERS: ADMIT Internal Medicine; ATTEND Internal Medicine